=== PATIENT | female | born 1975 | race African-American/Black ===

== ENCOUNTER 2017-11-12 06:20 | Emergency (ER) | payer MEDICAID, SELFPAY ==
[2017-11-12] MEDS ORDERED: Ibuprofen 800 MG TAB ONE (07:16)
[2017-11-12] MEDS ORDERED: traMADol HCl 50 MG TAB ONE (07:18)
== END 2017-11-12 07:24 | disposition home or self-care (01) ==
LOC: ERS 06:20
DX: J06.9 Acute upper respiratory infection, unspecified (principal); G89.29 Other chronic pain; M79.602 Pain in left arm; F17.210 Nicotine dependence, cigarettes, uncomplicated
CPT/HCPCS: 99406

== ENCOUNTER 2018-02-20 06:47 | Emergency (ER) | payer SELFPAY ==
[2018-02-20 07:39] LABS: ALT (SGPT) 20 U/L (8-55); AST (SGOT) 26 U/L (5-34); Albumin 4.4 g/dL (3.5-5.0); Alkaline Phosphatase 59 U/L (40-150); Anion Gap 12 mmol/L (10-20); BUN (Urea Nitrogen) 6 mg/dL (7.0-18.7); Bilirubin, Total 0.5 mg/dL (0.2-1.2); Calc. Creatinine Clearance 0 mL/min (70-130); Calcium 9.6 mg/dL (7.8-10.44); Carbon Dioxide 24 mmol/L (22-29); Chloride 103 mmol/L (98-107); Estimated GFR-MDRD Greater than 90; Globulin 3.5 g/dL (2.4-3.5); Glucose 84 mg/dL (70-105); Lipase 15 U/L (8-78); Magnesium 2.4 mg/dL (1.6-2.6); Potassium 4.1 mmol/L (3.5-5.1); Protein, Total 7.9 g/dL (6.0-8.3); Sodium 135 mmol/L (136-145)
[2018-02-20] MEDS ORDERED: Ondansetron HCl/PF 4 MG/2 ML Vial ONE (07:46)
[2018-02-20 07:58] LABS: #Basophils 0.1 thou/uL (0.0-0.2); #Eosinphils 0.4 thou/uL (0.0-0.7); #Lymphocytes 3.3 thou/uL (1.20-3.40); #Monocytes 0.8 thou/uL (0.11-0.59); #Neutrophils 6.2 thou/uL (1.40-6.50); %Eosinophils 3.7 % (0.0-10.0); %Lymphocytes 30.4 % (21.0-51.0); %Monocytes 7.6 % (0.0-10.0); %Neutrophils 57.3 % (42.0-75.0); Anisocytosis SLIGHT = 6-15 cells (100X) (0-5/hpf); Hemoglobin 9.8 g/dL (12.0-16.0); MDiff Complete? YES; Mean Corpuscular HGB CONC 31.4 g/dL (32.0-36.0); Mean Corpuscular Hemoglobin 21.4 pg (27.0-31.0); Mean Corpuscular Volume 68.3 fl (81.0-99.0); Mean Platelet Volume 8.5 fL (7.4-10.4); Microcytosis SLIGHT = 6-15 cells (100X) (0-5/hpf); PLT Morphology Comment Appears Increased; Platelet Count 405 thou/uL (130-400); Polychromasia SLIGHT = 2-3 cells (100X) (0-2/hpf); RBC Distribution Width 17.6 % (11.5-14.5); Red Blood Cell (RBC) Count 4.59 mill/uL (4.20-5.40); White Blood Cell (WBC) Count 10.8 thou/uL (4.8-10.8)
[2018-02-20 08:40] LABS: Bilirubin Negative (Negative); Blood, Urine Negative (Negative); Clarity CLEAR (Clear); Glucose, Urine (Dipstick) Negative (Negative); Leukocyte Negative (Negative); Nitrite Negative (Negative); Protein, Urine (Dipstick) Negative (Neg-Trace); Specific Gravity, Urine 1.011 (1.002-1.036); Urobilinogen 0.2 mg/dL (0.2-1.0); pH, Urine 7.5 (5.0-9.0)
== END 2018-02-20 09:12 | disposition home or self-care (01) ==
LOC: ERS 06:47
DX: R11.2 Nausea with vomiting, unspecified (principal); R19.7 Diarrhea, unspecified; F17.210 Nicotine dependence, cigarettes, uncomplicated
CPT/HCPCS: 80053; 81003; 83690; 83735; 85025; 96361; 96372; 96374; J2405

== ENCOUNTER 2018-06-28 23:31 | Emergency (ER) | payer SELFPAY ==
[2018-06-29] MEDS ORDERED: Ketorolac Tromethamine 30 MG/ML VIAL ONE (00:26)
== END 2018-06-29 00:55 | disposition home or self-care (01) ==
LOC: ERS 23:31
DX: K02.9 Dental caries, unspecified (principal); F17.210 Nicotine dependence, cigarettes, uncomplicated; Z71.6 Tobacco abuse counseling; Z79.899 Other long term (current) drug therapy
CPT/HCPCS: 96372; 99406; J1885

== ENCOUNTER 2019-03-22 17:04 | Inpatient (IN) | payer SELFPAY ==
--- NOTE | 2019-03-22 18:41 | PDOC.FPRHP ---
- History of Present Illness Chief Complaint: Symptomatic anemia History of Present Illness: 43 yo F with PMH GERD is directly admitted for symptomatic anemia. Hgb was 7.8. Patient reports one month of fatigue, tired, lightheaded upon standing, dyspnea on exertion at work. Also has new onset difficulty swallowing that began ~ 4 days ago. Progressive dysphagia to liquids and now solids. Sensation of food getting stuck. No vomiting, regurgitation. Reports significant acid reflux, has been out of PPI x1 month. Denies melena. Reports some intermittent mild chest pain/ache. No current pain. Periods are regular, last 7 days, uses 2 pads/day typically. In October/ November had heavier periods but now back to normal. Denies clots passing. - Allergies/Adverse Reactions Allergies Allergy/AdvReac Type Severity Reaction Status Date / Time amoxicillin Allergy Verified 03/22/19 19:57 - History PMHx: GERD, H pylori s/p treatment 2 yrs ago. L elbow dislocation PSHx: None FHx: Mom-HTN, aunts with lung and stomach cancer. Father - [place] in 60s Social: Smoke 1/2 PPD x 10 yrs. Drinks 3-4 12 oz drinks. Marijuana use. - Review of Systems General: reports: fatigue. denies: fever/chills ENT: denies: nasal congestion Respiratory: reports: shortness of breath, exercise intolerance. denies: cough Cardiovascular: reports: chest pain. denies: palpitation Gastrointestinal: reports: constipation. denies: nausea, vomiting, diarrhea, abdominal pain, GI bleeding Genitourinary: denies: dysuria Skin: denies: rashes Musculoskeletal: denies: pain, tenderness Neurological: reports: weakness - Vital signs BP: 108/61 HR: 85 RR: 16 Tmax: 98.2 Pox: 99% on RA Wt: 65 kg - Physical Exam Constitutional: NAD, awake, alert and oriented HEENT: normocephalic and atraumatic, PERRLA, EOMI, conjunctiva clear, MMM, oropharynx clear, other (poor dentition, no pallor) Neck: supple, trachea midline Chest: no-tender to palpation Heart: RRR, normal S1/S2, no murmurs/rubs/gallops, pulses present, no edema Lungs: CTAB, no respiratory distress, no wheezing Abdomen: soft, non-tender, bowel sounds present, no masses/distention Musculoskeletal: normal structure, normal tone Neurological: no focal deficit Skin: no rash/lesions, good turgor, capillary refill <2 seconds Heme/Lymphatic: no unusual bruising or bleeding Psychiatric: normal mood and affect FMR H&P: Results - Labs Result Diagrams: 03/22/19 18:11 FMR H&P: A/P - Problem List (1) Symptomatic anemia Current Visit: Yes Status: Acute Code(s): D64.9 - ANEMIA, UNSPECIFIED (2) Dysphagia Current Visit: Yes Status: Acute Code(s): R13.10 - DYSPHAGIA, UNSPECIFIED (3) GERD (gastroesophageal reflux disease) Current Visit: Yes Status: Chronic Code(s): K21.9 - GASTRO-ESOPHAGEAL REFLUX DISEASE WITHOUT ESOPHAGITIS (4) Atypical chest pain Current Visit: Yes Status: Acute Code(s): R07.89 - OTHER CHEST PAIN (5) Tobacco abuse Current Visit: Yes Status: Chronic Code(s): Z72.0 - TOBACCO USE (6) Alcohol abuse Current Visit: Yes Status: Chronic Code(s): F10.10 - ALCOHOL ABUSE, UNCOMPLICATED - Plan Symptomatic anemia - Hvb 7.8 in clinic - 1 u PRBC ordered, will recheck CBC in am - Vaginal bleeding vs GI loss in ddx. No abnormal or recent heavy periods. - VSS - FOBT pending New onset dysphagia - will consult GI in am GERD - Hx H pylori s/p tx. Last EGD in 2013 with esophagitis and antral gastritis - IV protonix since NPO - ran out of home PPI Atypical chest pain - no current pain. Will get EKG and trop Tobacco abuse - nicotine patch, encourage cessation Alcohol abuse - No history of withdrawal and patient has not drank for a couple days Marijuana abuse PCP: Lynne HICKS Ppx: SCD Diet: NPO at midnight Dispo: admit to medical inpatient Case discussed with Dr. Betts FMR H&P: Upper Level - Pertinent history 43 yo AAF with PMHx gastritis and H. pylori who presents with 1 month of worsening fatigue and more recently, 4-5 days of shortness of breath with exertion. She reports that a few months ago she was having bad heartburn and at that time had a couple of episodes of blood-streaked sputum, none since that time. She denies any h/o melena or BRBPR. Denies family history of colon cancer or change in stool habits. She intermittently has constipation which she relives with eating some dairy. She works at a warehouse and notes over the last few days she has been getting very winded when pushing carts around. She also reports some dysphagia with liquids and solids which has been intolerable the last few days. She endorses 8 lb weight loss but cannot say over how long. - Pertinent findings VSS Gen: awake, alert, oriented HEENT: NCAT, slightly pale conjunctiva, muddy sclera, MMM CV: RRR, no murmur noted RESP: CTAB, no wheezing ABD: soft, NTND, bowel sounds present EXT: cap refill 3 seconds RECTAL: pending - Plan Date/Time: 03/22/19 1841 43 yo AAF here with symptomatic anemia and new progressive dysphagia 1. Symptomatic anemia - Will transfuse 1u PRBC, discussed r/b/a with patient - Repeat H&H in a.m. - Suspect heavy menstural bleeding as primary reason however new finding of dysphagia warrants GI w/u as well - FOBT ordered 2. Dysphagia - Progressive and now solids and liquids - Will consult GI in the a.m. for consideration of upper/possibly lower scope 3. Tobacco abuse - Encourage cessation 4. Alcohol abuse - 4 drinks/day - Encourage cessation - Has not drank in 3 days, out of likely window for withdrawal/DTs - Denies h/o of w/d 5. GERD - Protonix - H/o h. pylori - GI consult as above 6. Atypical chest pain - No current pain - Suspect relate to anemia - Will order EKG and trop I, Velia Acharya MD, PGY-3, have evaluated this patient and agree with findings/ plan as outlined by corporate development intern resident. Pertinent changes/additions are listed here.
[2019-03-22 19:32] VITALS: BMI 23.2
[2019-03-22] MEDS ORDERED: Ondansetron ODT 4 MG TAB PO PRN (19:35)
[2019-03-22 19:39] LABS: #Basophils 0.1 thou/uL (0.0-0.2); #Eosinphils 0.3 thou/uL (0.0-0.7); #Lymphocytes 2.6 thou/uL (1.20-3.40); #Monocytes 0.6 thou/uL (0.11-0.59); %Basophils 1.1 % (0.0-1.0); %Eosinophils 3.8 % (0.0-10.0); %Lymphocytes 34.4 % (21.0-51.0); %Monocytes 8.4 % (0.0-10.0); %Neutrophils 52.3 % (42.0-75.0); Anisocytosis SLIGHT = 6-15 cells (100X) (0-5/hpf); Elliptocytes SLIGHT = 2-5 cells (100X) (0-1/hpf); Hemoglobin 7.7 g/dL (12.0-16.0); Hypochromia SLIGHT = 6-15 cells (100X) (0-5/hpf); MDiff Complete? YES; Mean Corpuscular HGB CONC 29.6 g/dL (32.0-36.0); Mean Corpuscular Hemoglobin 18.7 pg (27.0-31.0); Mean Corpuscular Volume 63.1 fL (78.0-98.0); Mean Platelet Volume 10.8 fL (7.4-10.4); Microcytosis MODERATE=15-30 cells (100X) (0-5/hpf); Platelet Count 344 thou/uL (130-400); Platelet Morphology Comment Appears Adequate; RBC Distribution Width 17.5 % (11.5-14.5); Red Blood Cell (RBC) Count 4.14 mill/uL (4.20-5.40); White Blood Cell (WBC) Count 7.6 thou/uL (4.8-10.8)
[2019-03-22] MEDS ORDERED: Docusate 100 MG CAP PO PRN (19:43)
[2019-03-22] MEDS ORDERED: Pantoprazole 40 MG VIAL IVP SCH (19:45)
[2019-03-22] MEDS: Nicotine 14 MG PATCH TD SCH (20:44)
[2019-03-22] MEDS: Acetaminophen 325 MG TAB PO PRN (21:08)
[2019-03-23] MEDS: Acetaminophen 325 MG TAB PO PRN ×2 (05:37→11:59)
[2019-03-23 05:56] LABS: #Basophils 0.1 thou/uL (0.0-0.2); #Eosinphils 0.4 thou/uL (0.0-0.7); #Lymphocytes 2.3 thou/uL (1.20-3.40); #Monocytes 0.8 thou/uL (0.11-0.59); #Neutrophils 4.3 thou/uL (1.40-6.50); %Basophils 0.7 % (0.0-1.0); %Eosinophils 4.8 % (0.0-10.0); %Lymphocytes 29.3 % (21.0-51.0); %Monocytes 10.2 % (0.0-10.0); Hemoglobin 8.6 g/dL (12.0-16.0); Mean Corpuscular HGB CONC 30.7 g/dL (32.0-36.0); Mean Corpuscular Hemoglobin 20.2 pg (27.0-31.0); Mean Corpuscular Volume 65.8 fL (78.0-98.0); Mean Platelet Volume 10.4 fL (7.4-10.4); Platelet Count 274 thou/uL (130-400); RBC Distribution Width 19.7 % (11.5-14.5); Red Blood Cell (RBC) Count 4.24 mill/uL (4.20-5.40); White Blood Cell (WBC) Count 7.8 thou/uL (4.8-10.8)
--- NOTE | 2019-03-23 06:56 | PDOC.FM ---
- Subjective Subjective: Symptoms have resolved, denies dizziness, lightheadedness, fatigue. She has only been up to the bathroom though. No overnight events. - Objective MAR Reviewed: Yes Vital Signs & Weight: Vital Signs (12 hours) Temp Pulse Pulse Resp BP BP Pulse Ox 03/23/19 04:00 98.1 F 73 16 101/63 99 03/23/19 00:31 97.8 F 75 18 100/53 L 03/22/19 21:41 97.8 F 73 18 105/70 03/22/19 20:00 98.3 F 81 16 111/67 100 Weight Weight 65.317 kg I&O: 03/21/19 03/22/19 03/23/19 06:59 06:59 06:59 Intake Total 1180 Balance 1180 Result Diagrams: 03/23/19 10:17 03/23/19 10:17 Phys Exam - Physical Examination Constitutional: NAD HEENT: moist MMs Neck: supple Respiratory: no wheezing, clear to auscultation bilateral Cardiovascular: RRR systolic murmur Gastrointestinal: soft, non-tender, positive bowel sounds Musculoskeletal: no edema Neurological: moves all 4 limbs Psychiatric: normal affect, A&O x 3 Skin: no rash Dx/Plan (1) Dysphagia Code(s): R13.10 - DYSPHAGIA, UNSPECIFIED Status: Acute (2) Symptomatic anemia Code(s): D64.9 - ANEMIA, UNSPECIFIED Status: Acute (3) Alcohol abuse Code(s): F10.10 - ALCOHOL ABUSE, UNCOMPLICATED Status: Chronic (4) GERD (gastroesophageal reflux disease) Code(s): K21.9 - GASTRO-ESOPHAGEAL REFLUX DISEASE WITHOUT ESOPHAGITIS Status: Chronic (5) Tobacco abuse Code(s): Z72.0 - TOBACCO USE Status: Chronic - Plan Plan: Ms Villela is a 43yo female with pmh GERD, tobacco and alcohol abuse admitted for symptomatic anemia Symptomatic anemia - Hgb 7.7-> 8.6 s/p 1U pRBCs. VSS - Ddx: Vaginal bleeding vs GI loss. No evidence of AUB in hx - FOBT pending Progressive dysphagia - Now solids and liquids - Consulted GI GERD - Hx H pylori s/p tx. - Last EGD in 2013 with esophagitis and antral gastritis - IV protonix as pt currently NPO - GI consulted Atypical chest pain - EKG no ST segment changes. Trop neg Tobacco abuse - Nicotine patch PRN - Encourage cessation Alcohol abuse - 4 drinks per day - No history of withdrawal and patient has not drank for a 3-4 days Marijuana abuse Code Status: FULL DVT ppx: SCDs PCP: Lynne HICKS Addendum - Attending - Attending Attestation Date/Time: 03/23/19 5673 I personally evaluated the patient and discussed the management with Dr. Newberry. I agree with the History, Examination, Assessment and Plan documented above with any addition or exceptions noted below. The patient is s/p 1 unit prbc. Anemia is improved. GI consult is being placed.
[2019-03-23] MEDS ORDERED: Pantoprazole 40 MG VIAL IVP SCH (09:00)
[2019-03-23 11:04] LABS: ALT (SGPT) 12 U/L (8-55); AST (SGOT) 15 U/L (5-34); Albumin 4.1 g/dL (3.5-5.0); Alkaline Phosphatase 58 U/L (40-150); Anion Gap 9 mmol/L (10-20); BUN (Urea Nitrogen) 4 mg/dL (7.0-18.7); Bilirubin, Total 0.4 mg/dL (0.2-1.2); Calc. Creatinine Clearance 114 mL/min (70-130); Calcium 9.5 mg/dL (7.8-10.44); Carbon Dioxide 26 mmol/L (22-29); Chloride 106 mmol/L (98-107); Estimated GFR-MDRD Greater than 90; Globulin 2.8 g/dL (2.4-3.5); Glucose 84 mg/dL (70-105); Iron 20 ug/dL (50-170); Iron Binding Capacity, Total 465 mcg/dL (265-497); Potassium 4.1 mmol/L (3.5-5.1); Protein, Total 6.9 g/dL (6.0-8.3); Sodium 137 mmol/L (136-145)
[2019-03-23 11:39] LABS: Anisocytosis SLIGHT = 6-15 cells (100X) (0-5/hpf); Elliptocytes SLIGHT = 2-5 cells (100X) (0-1/hpf); Hemoglobin 8.9 g/dL (12.0-16.0); Hypochromia MODERATE=16-30 cells (100X) (0-5/hpf); Large Platelets SLIGHT; Lymphocytes 45 % (21-51); MDiff Complete? YES; Mean Corpuscular HGB CONC 29.9 g/dL (32.0-36.0); Mean Corpuscular Volume 66.9 fL (78.0-98.0); Mean Platelet Volume 10.6 fL (7.4-10.4); Microcytosis SLIGHT = 6-15 cells (100X) (0-5/hpf); Monocytes 2 % (0-10); Neutrophil 53 % (42-75); Platelet Count 243 thou/uL (130-400); Platelet Morphology Comment Appears Adequate; Poikilocytosis SLIGHT = 6-15 cells (100X) (0-5/hpf); RBC Distribution Width 19.7 % (11.5-14.5); Red Blood Cell (RBC) Count 4.44 mill/uL (4.20-5.40); White Blood Cell (WBC) Count 6.9 thou/uL (4.8-10.8)
[2019-03-23] MEDS ORDERED: Sodium Chloride 0.9% (PF) 10 ML VIAL FS PRN (14:55)
[2019-03-23] MEDS ORDERED: GoLYTELY 4,000 ml Bottle PO SCH (18:00)
[2019-03-23] MEDS: Pantoprazole 40 MG VIAL IVP SCH (20:17)
[2019-03-23] MEDS: Nicotine 14 MG PATCH TD SCH (20:17)
--- NOTE | 2019-03-23 21:30 | CON ---
DATE OF CONSULTATION: 03/23/2019 REASON FOR CONSULTATION: Symptomatic anemia, dysphagia. CONSULTING PROVIDER: Dr. Abigail Newberry. HISTORY OF PRESENT ILLNESS: The patient is a 43-year-old female with past medical history of GERD and H. pylori, status post treatment 2 years ago, presenting with complaints of dysphagia and shortness of breath. Upon questioning the patient, she stated that in December of this year, she had the acute onset of hematemesis characterized as coffee-grounds emesis x4, for which she was seen [facility] an [facility]. EGD was planned for diagnostic purposes, but the procedure was never performed due to insurance issues. She was subsequently placed on PPI as part of management for this condition and she did not have any further episodes of hematemesis since then. However, approximately 4 to 5 days ago, she had the acute onset of dysphagia characterized as the sensation that both solid and liquid foods had difficulty passing between the levels of the sternal notch to the xiphoid process, but ultimately the sensation that things were getting stuck at the xiphoid process itself. She adds that she has never experienced this before , but that she had run out of her acid suppression medications approximately 1 month ago. This was associated with increased chest pain, shortness of breath both at rest and exertion as well as odynophagia characterized as an itching-type sensation that is present throughout her entire substernal area. She denies any other symptoms including any changes in her bowel habits, having approximately one semi-solid bowel movement every 2 days with increased abdominal pressure in order to facilitate defecation. Currently, she denies any nausea, vomiting, fevers, chills, GI bleeding. Of note, the patient does have a brother who was diagnosed with achalasia and has had to undergo subsequent therapy as a result. REVIEW OF SYSTEMS: A 10-category review of systems was obtained with all responses negative except for the pertinent positives as listed in HPI. PAST MEDICAL HISTORY: As per HPI. PAST SURGICAL HISTORY: None. FAMILY HISTORY: One of her aunts was diagnosed with stomach cancer (unknown age ), but otherwise denies any family history of colon polyps or colon cancer. SOCIAL HISTORY: Smokes approximately one-half pack per day, but also does engage in frequent marijuana use. She also drinks around three to four 12-ounce alcoholic beverages per day as well. OUTPATIENT MEDICATIONS: None. ALLERGIES: AMOXICILLIN. PHYSICAL EXAMINATION: VITAL SIGNS: Temperature 98, pulse 60, blood pressure 107/68, respiratory rate 18, saturating 99% on room air. GENERAL: The patient was lying in bed, in no acute distress. Alert and oriented x4. HEENT: Normocephalic, atraumatic. NECK: Supple. No JVD or scleral icterus noted. CARDIOVASCULAR: Regular rate and rhythm with no discernible murmurs, gallops, or rubs. RESPIRATORY: Clear to auscultation bilaterally with no discernible wheezes or rales. ABDOMEN: Normoactive bowel sounds. Soft, nondistended. Mild tenderness to palpation in the midepigastric region. EXTREMITIES: No cyanosis, clubbing, or edema. LABORATORY DATA: CBC with white blood cell count of 7.8, hemoglobin 8.6, hematocrit 27.9, platelets 274. Chemistry with a sodium of 137, potassium 4.1, chloride 106, CO2 of 26, BUN 4, creatinine 0.66, glucose 84, AST 15, ALT 12, alkaline phosphatase 58, total bilirubin 0.4. Iron indices were drawn earlier today, but were drawn after infusion of blood, so the results are skewed and will not reflect a true level for this particular patient. IMAGING DATA: No current GI imaging is available for review. ASSESSMENT AND PLAN: The patient is a 43-year-old female with past medical history of gastroesophageal reflux disease and Helicobacter pylori, status post treatment (two years ago), presenting with symptomatic anemia and dysphagia. Symptomatic anemia: Upon chart review, the patient has had a significant microcytic anemia since 2014, but had not been diagnosed with any particular etiology for her anemia during this time. However, more recently, she has had a mild drop in her H and H when compared to baseline, which has manifested itself as increased shortness of breath both at rest and exertion. She does report a recent history of hematemesis in December 2018, which could potentially contribute to her current anemia, however, she has not had any further episodes of hematemesis since then raising the concern for a chronic slow GI bleed. She has not had a colonoscopy before nor did she endorse any family history of colon cancer, which places her at average risk for colonic malignancy. However, given her ethnicity, she has an increased risk for colonic neoplasm and would benefit from a colonoscopy. RECOMMENDATIONS: 1. Would continue to trend H and H and transfuse as necessary to maintain an H and H of 7/21. 2. Continue to monitor clinically for signs of active GI bleeding. 3. Would place the patient on pantoprazole 40 mg b.i.d. in light of hematemesis in December 2018. 4. We will plan for both EGD and colonoscopy tomorrow for further evaluation of her symptomatic anemia. Dysphagia: The patient is presenting with fairly acute onset of dysphagia approximately 4 to 5 days ago, characterized by the sensation that both solid and liquid foods are having difficulty traversing the esophagus starting at the sternal notch to the xiphoid process, but ultimately getting the sensation that things are getting stuck at the xiphoid process itself. She does have a fairly decent history for gastroesophageal reflux disease, which could potentially contribute to her current clinical situation, especially given the acute onset of her symptoms. However, the differential could also include esophageal stricture/stenosis (less likely given acute onset), Zayda esophagitis, eosinophilic esophagitis, oropharyngeal dysphagia (less likely), CMV or HSV infection, extrinsic compression of the esophagus, and/or GI neoplasm. RECOMMENDATIONS: 1. Would place the patient on a clear-liquid diet with patient n.p.o. at midnight in anticipation for EGD tomorrow morning. 2. Would place the patient on pantoprazole 40 mg b.i.d. given the higher likelihood of acid reflux contributing to her current symptoms. 3. Would continue standard anti-reflux precautions including maintaining more of an upright posture, especially after meals and avoiding later meals and avoiding trigger foods. 4. We will continue to follow. Please call with any questions. Job ID: [id number] [facility] HEALTH SYSTEMJaycob
--- NOTE | 2019-03-24 06:35 | PDOC.FM ---
- Subjective Subjective: No overnight events. Completed prep. Has been having yellow-clear stools. Reports headache and some nausea this AM. Denies dizziness, lightheadedness, fatigue. - Objective MAR Reviewed: Yes Vital Signs & Weight: Vital Signs (12 hours) Temp Pulse Resp BP Pulse Ox 03/23/19 20:00 98.4 F 64 16 109/70 98 Weight Admit Weight 65.317 kg Weight 65.317 kg I&O: 03/22/19 03/23/19 03/24/19 06:59 06:59 06:59 Intake Total 1180 4000 Balance 1180 4000 Result Diagrams: 03/24/19 06:17 03/24/19 06:17 Phys Exam - Physical Examination Constitutional: NAD HEENT: moist MMs Neck: supple Respiratory: no wheezing, clear to auscultation bilateral Cardiovascular: RRR Gastrointestinal: soft, non-tender, positive bowel sounds Musculoskeletal: no edema Neurological: moves all 4 limbs Psychiatric: normal affect, A&O x 3 Skin: no rash Dx/Plan (1) Dysphagia Code(s): R13.10 - DYSPHAGIA, UNSPECIFIED Status: Acute (2) Symptomatic anemia Code(s): D64.9 - ANEMIA, UNSPECIFIED Status: Acute (3) Alcohol abuse Code(s): F10.10 - ALCOHOL ABUSE, UNCOMPLICATED Status: Chronic (4) GERD (gastroesophageal reflux disease) Code(s): K21.9 - GASTRO-ESOPHAGEAL REFLUX DISEASE WITHOUT ESOPHAGITIS Status: Chronic (5) Tobacco abuse Code(s): Z72.0 - TOBACCO USE Status: Chronic - Plan Plan: Ms Villela is a 43yo female with pmh GERD, tobacco and alcohol abuse admitted for symptomatic anemia Symptomatic anemia - Hgb 7.7-> 8.6 s/p 1U pRBCs. VSS - Ddx: Vaginal bleeding vs GI loss. No evidence of AUB in hx - FOBT negative - GI consulted, apprec recs - NPO for EGD/colonoscopy today Progressive dysphagia - Now solids and liquids - Consulted GI, EGD today GERD - Hx H pylori s/p tx. - Last EGD in 2013: esophagitis and antral gastritis - IV protonix BID as pt currently NPO Atypical chest pain - EKG no ST segment changes. Trop neg Tobacco abuse - Nicotine patch PRN - Encourage cessation Alcohol abuse - 4 drinks per day - No history of withdrawal Marijuana abuse Code Status: FULL DVT ppx: SCDs PCP: Lynne HICKS [place] - Attending - Attending Attestation Date/Time: 03/24/19 9094 I personally evaluated the patient and discussed the management with Dr. Newberry. I agree with the History, Examination, Assessment and Plan documented above with any addition or exceptions noted below. The patient had egd and colonoscopy this morning. Will give iron infusion due to iron deficiency. Hb is stable. Will likely d/c this afternoon.
[2019-03-24 06:58] LABS: #Basophils 0.1 thou/uL (0.0-0.2); #Eosinphils 0.5 thou/uL (0.0-0.7); #Lymphocytes 2.5 thou/uL (1.20-3.40); #Monocytes 0.7 thou/uL (0.11-0.59); #Neutrophils 3.8 thou/uL (1.40-6.50); %Basophils 0.7 % (0.0-1.0); %Eosinophils 6.1 % (0.0-10.0); %Lymphocytes 33.2 % (21.0-51.0); %Monocytes 9.6 % (0.0-10.0); %Neutrophils 50.3 % (42.0-75.0); Hemoglobin 9.2 g/dL (12.0-16.0); Mean Corpuscular HGB CONC 31.2 g/dL (32.0-36.0); Mean Corpuscular Hemoglobin 20.6 pg (27.0-31.0); Platelet Count 298 thou/uL (130-400); RBC Distribution Width 19.9 % (11.5-14.5); Red Blood Cell (RBC) Count 4.46 mill/uL (4.20-5.40); White Blood Cell (WBC) Count 7.5 thou/uL (4.8-10.8)
[2019-03-24 07:17] LABS: Anion Gap 9 mmol/L (10-20); BUN (Urea Nitrogen) 4 mg/dL (7.0-18.7); Calc. Creatinine Clearance 111 mL/min (70-130); Calcium 9.7 mg/dL (7.8-10.44); Carbon Dioxide 25 mmol/L (22-29); Chloride 107 mmol/L (98-107); Estimated GFR-MDRD Greater than 90; Glucose 86 mg/dL (70-105); Sodium 137 mmol/L (136-145)
[2019-03-24] MEDS: Acetaminophen 325 MG TAB PO PRN (08:18)
[2019-03-24] MEDS: Pantoprazole 40 MG VIAL IVP SCH (08:19)
[2019-03-24 09:28] LABS: BHCG - Serum Negative (NEGATIVE); Pregs Control Background? CLEAR/WHITE (CLR/WHITE); Pregs Control Bar Appear? YES (CONTROL BAR)
[2019-03-24] MEDS ORDERED: Iron, Sodium Ferric Gluconate 250 MG in Sodium Chloride 0.9% 100 ML IVPB SCH (11:15)
--- NOTE | 2019-03-24 11:22 | OP ---
DATE OF PROCEDURE: 03/24/2019 PROCEDURE PERFORMED: Esophagogastroduodenoscopy with biopsy, colonoscopy (diagnostic). INDICATION FOR PROCEDURE: Anemia of unknown origin. DESCRIPTION OF PROCEDURE: After the risks and benefits of the procedures were explained to the patient including risks of bleeding, infection, perforation, reactions to anesthesia, aspiration and/or pain, informed consent was obtained. The patient was then taken to the endoscopy suite, where deep sedation was administered via propofol and the anesthesia support. Once adequate sedation was achieved, the standard gastroscope was introduced into the mouth with intubation of the esophagus, stomach, and the proximal small intestines with the findings listed below. Upon completion of this portion of the procedure, all equipment was removed from the patient and the bed was rotated 180 degrees in anticipation for the colonoscopy. After a digital rectal examination was performed, the standard colonoscope was introduced into the rectum and advanced to the terminal ileum with mild difficulty due to a tortuous sigmoid colon. The quality of the prep was excellent with good visualization achieved. The patient tolerated the procedure well with no immediate perioperative complications. Upon conclusion of the colonoscopy, all equipment was removed from the patient and the patient was transferred to PACU in satisfactory condition. EGD FINDINGS: Esophagus: Normal-appearing mucosa was seen in the proximal, mid, and distal esophagus. Both the diaphragmatic pinch and GE junction were well seen at approximately 40 cm past the incisors. There was no evidence of erosions, ulcerations, mass, lesions, or active/recent bleeding. Stomach: Normal-appearing mucosa was seen in the gastric cardia, fundus, body, greater curvature, antrum, and incisura. There was no evidence of erosions, ulcerations, mass, lesions, or active/recent bleeding. Duodenum normal-appearing mucosa was seen in both the duodenal bulb and second portion of the duodenum. There was no evidence of erosions, ulcerations, mass, lesions, or active/recent bleeding. Random biopsies were taken from both the bulb and the second portion for evaluation of possible celiac disease. IMPRESSION: 1. Normal upper endoscopy. 2. No etiology for the patient's anemia was seen during this examination. COLONOSCOPY FINDINGS: Digital rectal exam, normal-appearing skin and sphincter tone was seen on external examination. COLON FINDINGS: Normal-appearing mucosa was seen within the terminal ileum as well as at the ileocecal valve and appendiceal orifice. Normal-appearing mucosa was then also seen in the cecum, ascending, transverse, descending, sigmoid colons and rectum. Small internal hemorrhoids were seen on rectal retroflexion. There was no evidence of erosions, ulcerations, mass, lesions, or active/recent bleeding seen throughout the entire colon. IMPRESSION: 1. Small internal hemorrhoids. 2. Otherwise normal colonoscopy with no etiology of the patient's anemia seen during this examination. RECOMMENDATIONS: 1. We will continue to trend H and H and transfuse as necessary to maintain an H and H of 7/21 while inpatient. 2. Continue to monitor clinically for signs of active GI bleeding. 3. Agree with administration of iron supplementation. 4. We will follow up on the biopsy results for possible celiac disease. 5. I would have the patient follow up in the GI Clinic in the next 4 weeks for re-evaluation of anemia and possible capsule endoscopy at that time. We will sign off at this time. Please call with any additional questions. Job ID: [id number]
[2019-03-24 12:26] VITALS: BP 104/65; TEMP 97.7
[2019-03-24] MEDS ORDERED: PROPOFOL 200 MG/20 ML VIAL ONE (15:58)
--- NOTE | 2019-03-25 00:45 | DIS ---
DATE OF ADMISSION: 03/22/2019 DATE OF DISCHARGE: 03/24/2019 RESIDENT: Abigail Newberry MD ADMITTING ATTENDING: Cisco Betts MD DISCHARGE ATTENDING: Michelle Horowitz MD CONSULTS: GI, Dr. Judge. PROCEDURES: EGD, colonoscopy, normal upper endoscopy. No etiology for patient's anemia found. Colonoscopy results: Small internal hemorrhoids otherwise normal colonoscopy with no etiology of the patient's anemia seen during this exam. PRIMARY DIAGNOSIS: Symptomatic anemia. SECONDARY DIAGNOSES: 1. Progressive dysphagia. 2. Gastroesophageal reflux disease. 3. Atypical chest pain. 4. Tobacco abuse. 5. Alcohol abuse. 6. Marijuana abuse. DISCHARGE MEDICATIONS: 1. Ferrous sulfate 325 mg q.a.m. with meals. 2. . 3. Protonix 40 mg b.i.d. HISTORY OF PRESENT ILLNESS/HOSPITAL COURSE: Ms. Villela is a 43-year-old female with past medical history of GERD, directly admitted from [facility] for symptomatic anemia with a hemoglobin of 7.8. The patient reported one month of fatigue, lightheadedness, and dyspnea on exertion. She also reported progressive dysphagia with new onset of difficulty swallowing liquids about 4 days ago. She has had significant acid reflux, but she has been out of her omeprazole for the past month. Denied any melena or bright red blood per rectum. Reports that her periods have been regular. They last 7 days and she typically uses 2-3 packs per day, was very concerned whenever she uses the restroom, she notes that her pads have no saturation on them but does pass some clots when she uses the restroom. She was treated for H pylori two years ago and had EGD in 2019 with esophagitis and antral gastritis. On admission, her vital signs were within normal limits. The patient's blood pressure 108/61, heart rate 85. She had a systolic flow murmur on exam in regard to her symptomatic anemia. Initial hemoglobin was 7.7, 9.2 after 1 unit of packed red blood cells. She had a negative FOBT. She was started on daily ferrous sulfate, as well as b.i.d. PPI. GI was consulted, who performed EGD for patient's progressive dysphagia as well as colonoscopy for symptomatic anemia. Both were negative with exception of hemorrhoids. The patient's atypical chest pain, EKG and troponin were normal. The patient has a history of tobacco, alcohol, and marijuana abuse. No signs of withdrawal during hospitalization. Iron studies were obtained. TIBC 465, ferritin 8, iron 20. She received an iron infusion prior to discharge. DISPOSITION: Stable. DISCHARGE INSTRUCTIONS: 1. Location: Home. 2. Diet: Regular. Avoid acidic foods. 3. Activity: No restrictions. 4. Followup: Follow up with [facility], Dr. Hamilton, within 7 days. Job ID: [id number]
[2019-03-25] MEDS ORDERED: Ferrous Sulfate 325 MG TAB PO SCH (08:00)
== END 2019-03-24 15:53 | disposition home or self-care (01) | DRG 812 ==
LOC: T4-B 17:27
PROVIDERS: ADMIT Family Medicine; ATTEND Family Medicine
PROC: 0DB98ZX Excision of Duodenum, Via Natural or Artificial Opening Endoscopic, Diagnostic (ICD-10-PCS; principal; 2019-03-22)
PROC: 0DJD8ZZ Inspection of Lower Intestinal Tract, Via Natural or Artificial Opening Endoscopic (ICD-10-PCS; 2019-03-22)
DX: D50.9 Iron deficiency anemia, unspecified (principal); K21.9 Gastro-esophageal reflux disease without esophagitis; R13.10 Dysphagia, unspecified; F12.10 Cannabis abuse, uncomplicated; F10.10 Alcohol abuse, uncomplicated; F17.210 Nicotine dependence, cigarettes, uncomplicated; R07.89 Other chest pain; K64.8 Other hemorrhoids
CPT/HCPCS: 36415; 36430; 80048; 80053; 82274; 82728; 83540; 83550; 84484; 84703; 85025; 85046; 85060; 86850; 86900; 86901; 88305; 88312; 88313; 93005; 93010; C9113; J2916; J3490; P9016

== ENCOUNTER 2019-04-21 06:55 | Outpatient (CLI) | payer MEDICAID ==
--- NOTE | 2019-04-21 08:00 | ULT ---
US Pelvic W Doppler HISTORY: Menorrhagia COMPARISON: None TECHNIQUE: Multiple grayscale and color Doppler images were obtained in a transabdominal pelvic ultra sound. Spectral analysis of the Doppler waveforms of the ovaries were performed. FINDINGS: CERVIX: Not well visualized UTERUS: Enlarged uterus with heterogeneous echotexture and multiple foci of altered echotexture indic ative of fibroid uterus. Largest discernible uterine fibroid is just under 4 cm in diameter ENDOMETRIAL STRIPE: 16, (19 mm. No free fluid is present. RIGHT OVARY: Normal flow, without focal mass. LEFT OVARY: Normal flow, without focal mass. IMPRESSION: 1. Fibroid uterus. 2. Thickened endometrium. Recommend appropriate clinical follow-up.
== END 2019-04-21 06:56 | disposition home or self-care (01) ==
LOC: BICULT 06:55
PROVIDERS: ATTEND Family Medicine
DX: N93.9 Abnormal uterine and vaginal bleeding, unspecified (principal); D25.9 Leiomyoma of uterus, unspecified; R93.89 Abnormal findings on diagnostic imaging of other specified body structures
CPT/HCPCS: 76856; 93976

== ENCOUNTER 2019-07-25 13:10 | Observation (INO) | payer MEDICAID ==
--- NOTE | 2019-07-25 14:11 | PDOC.FPRHP ---
- History of Present Illness Chief Complaint: Symptomatic Anemia, AUB History of Present Illness: Pt is a 43 yo with PMH significant for uterine fibroids, AUB who is coming in for symptomatic anemia directly admitted by Dr. Mitchell. Pt had AUB starting the end of 2017 resulting in work up revealing the uterine fibroids, endometrial biopsy was negative. Pt's symptoms progressed so mirena was placed June 13, 2019 with initial decrease in bleeding. Last week her bleeding progressed requiring her to replace pads q1-2 hrs. Pt states she had orthostatic hypotension, dyspnea on exertion, lightheadedness as well. Subsequently, she visited Dr. Mitchell 07/20 and started TXA 07/21 with alleviation in bleeding. She is currently not bleeding but remains symptomatic secondary to anemia, Hgb 7.[address] Mitchell's office. Of note, pt had an EGD/Colonoscopy in March 2019 for bleeding which was non- revealing, she required one unit of blood at this time. - Allergies/Adverse Reactions Allergies Allergy/AdvReac Type Severity Reaction Status Date / Time amoxicillin Allergy Verified 07/25/19 14:07 - Home Medications Medication Instructions Recorded Confirmed Type Ferrous Sulfate [Feosol] 325 mg PO QAM-WM #30 tab 03/24/19 07/25/19 Rx Tranexamic Acid [Lysteda] 2 tab PO TID 07/25/19 07/25/19 History - History PMHx: GERD, history of Fibroids PSHx: none FHx: mother - possible endometriosis Social: heavy drinker, 2 large smirnoffs/day; - Review of Systems General: denies: fever/chills, weight/appetite/sleep changes Eyes: reports: vision changes ENT: denies: nasal congestion, rhinorrhea Respiratory: reports: shortness of breath, exercise intolerance. denies: cough , congestion Cardiovascular: denies: chest pain, palpitation, edema Gastrointestinal: denies: nausea, vomiting, diarrhea, constipation Skin: denies: rashes, lesions Musculoskeletal: denies: pain, tenderness Neurological: reports: syncope, weakness. denies: numbness, seizure - Vital signs BP: [109/55] HR: [73] RR: [20] Tmax: [98.8] Pox: []% on [RA] Wt: [68 Kg] - Physical Exam Constitutional: NAD, awake, alert and oriented HEENT: PERRLA, EOMI, conjunctiva clear Neck: supple, FROM, trachea midline Heart: RRR, normal S1/S2 Lungs: CTAB, no respiratory distress, good air movement Abdomen: soft, bowel sounds present, no masses/distention Musculoskeletal: normal structure, ROM grossly normal Neurological: no focal deficit, CN II-XII intact Skin: no rash/lesions Heme/Lymphatic: no purpura, no petechia Psychiatric: good judgment and insight, intact recent and remote memory FMR H&P: A/P - Problem List (1) Abnormal uterine bleeding (AUB) Current Visit: Yes Status: Acute Code(s): N93.9 - ABNORMAL UTERINE AND VAGINAL BLEEDING, UNSPECIFIED (2) Uterine fibroid Current Visit: Yes Status: Acute Code(s): D25.9 - LEIOMYOMA OF UTERUS, UNSPECIFIED (3) Symptomatic anemia Current Visit: No Status: Acute Code(s): D64.9 - ANEMIA, UNSPECIFIED (4) Alcohol abuse Current Visit: No Status: Chronic Code(s): F10.10 - ALCOHOL ABUSE, UNCOMPLICATED (5) GERD (gastroesophageal reflux disease) Current Visit: No Status: Chronic Code(s): K21.9 - GASTRO-ESOPHAGEAL REFLUX DISEASE WITHOUT ESOPHAGITIS (6) Tobacco abuse Current Visit: No Status: Chronic Code(s): Z72.0 - TOBACCO USE - Plan # AUB, Symptomatic Anemia Hx started Oct 2018, Nov 2018. Followed by Dr. Mitchell. TVUS revealed multiple fibroids, largest 4 cm. Mirana placed May 2019 with decrease in bleeding until last week. Heavy bleeding q4days, changed pad q1-2h. Dr. Mitchell placed on TXA on 07/21/19. Pt has no bleeding 07/25 but remains symptomatic, Hgb 7.3. 9.2 in March 2019. Vitals stable. - Type and Cross, pRBC's 2 Units - H/H am - follow symptoms - OBGYN consult - fatou recs # Microcytic Anemia TIBC 465, Ferritin 8, Iron 20 in 03/2019. Iron transfusion 03/2019. - continue ferrous sulfate # GERD - no meds # Nicotine Dependence 1pack/4 days - Nicotine patch # Alcohol Abuse Stopped drinking last week. Was drinking a box of wine previously. - ASE initiated Diet: no restrictions Fluids: PO intake VTE Prophylaxis: SCDs Code Status: Full Dispo: Obs at this time, see if symptoms resolve with pRBCs, follow up OBGYN recs. FMR H&P: Upper Level - Pertinent history 43 yo F w/ menorrhagia 2/2 uterine fibroids presents as direct admission from [facility] 2/2 symptomatic anemia. Pt had aub starting back in Nov that occurred with monthly cycle. She was eventually seen by Dr Mitchell OP and aub workup revealed negative endometrial biopsy and TVUS revealed a fibroid uterus. Mirena was placed in May of 2019 and she reported control of bleeding after that, but it recently returned. She continued to have heavy menstrual bleeding to the amount of 1 pad per hour for 2 days straight then 1 pad every other hour for the remainder of her cycle (approx 5-6 days). Of note, she was hospitalized in March of 2019 for progressive dysphagia and had an EGD/Colon at that time which was negative. She had blood studies which revealed a profound microcytic iron deficiency anemia and was transfused 1UPRBCs and had an iron infusion as well. Due to her not being able to tolerate oral iron she eventually stopped taking the medication and her iron deficiency anemia never resolved. Regarding possible future therapeutic options, pt does not want hysterectomy, although she is not planning on any other children she remains open to the idea. - Pertinent findings ROS: As above, Currently reports no vaginal bleeding PE: GEN: NAD HEENT: NCAT, perrla, EOMI, no overt conjunctival pallor noted CV: RRR No tachycardia, No MRG, pulses full and equal throughout and cap refill normal Resp: CTABL No WRR Abd: Soft NTND Extremities: Moving all Neuro: No focal deficit - Plan Date/Time: 07/25/19 1679 IJasvir DO, have evaluated this patient and agree with findings/ plan as outlined by phd internship resident. Pertinent changes/additions are listed here. 1) Symptomatic anemia 2/2 aub - transfuse 2UPRBCs - repeat am cbc - consult information security risk analyst small package and bundle sorter clerk on for additional recommendations; although, pt reports she does not want surgical intervention and would prefer to give the Mirena IUD "time" 2) AUB: - OP TVUS showed fibroid uterus; likely cause - Endometrial biopsy WNL 3) Microcytic anemia - iron studies confirm iron deficiency anemia with profound microcytosis - will transfuse 2U PRBCs and consider Iron infusion - will need continued iron supplementation and resolution of continued bleeding - if microcytosis persists thalassemia remains a possibilty; consider Hgb electrophoresis after correction of iron deficiency 4) Alcohol abuse - [id number] for withdrawal, consider ase Addendum - Attending - Attending Attestation Date/Time: 07/25/19 1700 I personally evaluated the patient and discussed the management with Dr. Saxena I agree with the History, Examination, Assessment and Plan documented above with any addition or exceptions noted below - 43 yo female with h/o GERD and AUB secondary to fibroids sent from clinic today due to severe anemia with Hgb = 7.4. Patient reports feeling cold, SOB, and occasional dizziness when she stands. She had a MIrena IUD placed in mid May to see if it would help with her heavy menstrual bleeding. Patient reports that it seemed to help until last week when she began to have heavy bleeding again. No clots. Was started on TXA last week but took one dose and had vomiting and was instructed to stop the medication. Her bleeding did stop on Wednesday . Lab work was drawn and returned today with the low HGB.PMH/PSH/Meds/SH reviewed and agree with resident's documentation. Afebrile VSS Exam repeated by me and agree with resident's findings. A/P: 1) Symptomatic microcytic anemia secondary to AUB - will transfuse 2u pRBCs. 2) AUB secondary to fibroids - no bleeding currently. Patient wishes to continue with the MIrena as it was recently placed.
[2019-07-25 14:15] VITALS: BMI 24.2
[2019-07-25] MEDS ORDERED: Nicotine 7 MG PATCH TD SCH (15:00)
[2019-07-25] MEDS ORDERED: Acetaminophen 500 MG TAB PO SCH (18:15)
[2019-07-25] MEDS ORDERED: Sodium Chloride 0.9% 10 ML ONE (18:18)
[2019-07-25] MEDS: Sodium Chloride 0.9% 10 ML ONE (18:20)
[2019-07-26] MEDS ORDERED: Acetaminophen 500 MG TAB PO PRN (00:24)
[2019-07-26] MEDS ORDERED: Sodium Chloride 0.9% 10 ML ONE (03:07)
--- NOTE | 2019-07-26 06:50 | PDOC.FM ---
- Subjective Subjective: Pt is feeling well this morning. She tolerated the transfusion well. Denies bleeding at this time. - Objective Vital Signs & Weight: Vital Signs (12 hours) Temp Pulse Pulse Resp BP BP BP 07/26/19 03:10 98.3 F 68 68 20 107/57 L 107/57 L 07/26/19 00:40 98.3 F 60 20 115/66 07/26/19 00:33 98.3 F 60 20 115/66 07/26/19 00:18 98.5 F 68 20 98/57 L 07/26/19 00:15 98.5 F 68 20 98/57 L 98/57 L 07/25/19 23:45 98.5 F 68 20 98/57 L 07/25/19 21:05 98.4 F 72 72 22 H 103/65 103/65 07/25/19 20:40 98.2 F 72 24 H 101/59 L 101/59 L 07/25/19 19:40 98.5 F 67 12 111/59 L Pulse Ox 07/26/19 03:10 99 07/26/19 00:40 100 07/26/19 00:33 100 07/26/19 00:18 100 07/26/19 00:15 100 07/25/19 23:45 100 07/25/19 21:05 100 07/25/19 20:40 100 07/25/19 19:40 98 Weight Weight 68.039 kg I&O: 07/24/19 07/25/19 07/26/19 06:59 06:59 06:59 Intake Total 850 Balance 850 Result Diagrams: 07/26/19 04:06 Phys Exam - Physical Examination Constitutional: NAD HEENT: moist MMs, sclera anicteric conjunctiva non-pallor Respiratory: no wheezing, no rhonchi, clear to auscultation bilateral Cardiovascular: RRR, no significant murmur Gastrointestinal: soft, non-tender, positive bowel sounds Musculoskeletal: no edema, pulses present Neurological: non-focal, moves all 4 limbs Psychiatric: normal affect, A&O x 3 Skin: no rash, cap refill <2 seconds Dx/Plan (1) Abnormal uterine bleeding (AUB) Code(s): N93.9 - ABNORMAL UTERINE AND VAGINAL BLEEDING, UNSPECIFIED Status: Acute (2) Uterine fibroid Code(s): D25.9 - LEIOMYOMA OF UTERUS, UNSPECIFIED Status: Acute (3) Symptomatic anemia Code(s): D64.9 - ANEMIA, UNSPECIFIED Status: Acute (4) Alcohol abuse Code(s): F10.10 - ALCOHOL ABUSE, UNCOMPLICATED Status: Chronic (5) GERD (gastroesophageal reflux disease) Code(s): K21.9 - GASTRO-ESOPHAGEAL REFLUX DISEASE WITHOUT ESOPHAGITIS Status: Chronic (6) Tobacco abuse Code(s): Z72.0 - TOBACCO USE Status: Chronic - Plan Plan: # AUB, Symptomatic Anemia Hx started Oct 2018, Nov 2018. Followed by Dr. Mitchell. TVUS revealed multiple fibroids, largest 4 cm. Mirana placed May 2019 with decrease in bleeding until last week. Heavy bleeding q4days, changed pad q1-2h. Dr. Mitchell placed on TXA on 07/21/19. Pt has no bleeding 07/25 but remains symptomatic, Hgb 7.3. 9.2 in March 2019. Vitals stable. - Type and Cross, s/p pRBC's 2 Units - Hgb 9.0 - pending orthostatics, pt will ambulate and monitor for dyspnea - consider iron infusion; pt will continue iron supplements at home. Will add bowel regimen. - OBGYN consult - fatou recs # Microcytic Anemia TIBC 465, Ferritin 8, Iron 20 in 03/2019. Iron transfusion 03/2019. - as above # GERD - controlled # Nicotine Dependence 1pack/4 days - Nicotine patch # Alcohol Abuse Stopped drinking last week. Was drinking a box of wine previously. - no signs, symptoms at this time Diet: no restrictions Fluids: PO intake VTE Prophylaxis: SCDs Code Status: Full Dispo: Obs at this time, see if symptoms resolve with pRBCs, follow up OBGYN recs. Addendum - Attending - Attending Attestation Date/Time: 07/26/19 2729 I personally evaluated the patient and discussed the management with Dr. Saxena I agree with the History, Examination, Assessment and Plan documented above with any addition or exceptions noted below - Patient without complaints. Denies any dizziness. SOB improved. Afebrile VSS. A/P: 1) Anemia secondary to AUB from fibroids- H/H improved as well as symptoms. PLan to d/c home as patient desires conservative therapy for now with continuation of IUD.
--- NOTE | 2019-07-26 08:44 | PRG ---
DATE OF SERVICE: 07/26/2019 HISTORY OF PRESENT ILLNESS: Ms. Villela is a 43-year-old female, admitted by the Family Medicine Service for symptomatic anemia requiring a blood transfusion. The patient's source of blood loss is menorrhagia and had recently placed Mirena IUD and was started on TXA outpatient on 07/21/2019. The patient has since had resolution of her bleeding. This morning, she states her bleeding is still resolved and is otherwise doing fine. Vital signs reviewed and stable ASSESSMENT AND PLAN: The patient is a 43-year-old female with a fibroid uterus and menometrorrhagia, currently with an IUD and TXA for times of heavy bleeding. The patient has required a second blood transfusion in the last several months. I would recommend re-evaluation with an VIDEO PRODUCTION SPECIALIST for surgical management, which may include endometrial biopsy or hysterectomy should significant bleeding persist over the next month or two, putting her at risk for a third blood transfusion. For now, I will be signing off. Anticipate the patient is discharged home today. Job ID: [id number] MTDD
[2019-07-26] MEDS: Sodium Chloride 0.9% 10 ML ONE (08:46)
[2019-07-26 11:53] VITALS: BP 97/52; TEMP 98.5
--- NOTE | 2019-07-26 14:06 | CON ---
DATE OF CONSULTATION: 07/25/2019 CHIEF COMPLAINT: Vaginal bleeding with a fibroid uterus. HISTORY OF PRESENT ILLNESS: The patient is a 43-year-old female, who was admitted on 07/25/2019 for symptomatic anemia by the family medicine team. The patient has had a history of heavy vaginal bleeding and a known fibroid uterus. She was recently seen by Dr. Mitchell in outpatient setting with an IUD placement for control of her menorrhagia. Since that time, the patient reports that she has had more days of bleeding, though is not passing clots anymore and has not had any pain associated with her periods that she had before. Recently given the extent of bleeding that she was having, the patient was also prescribed TXA. The patient at time of my evaluation reports that she is not having any more bleeding. She believes that the IUD has helped some and has not been given sufficient time to see if it is going to be appropriate management long-term. The patient reports a strong desire to keep her uterus and has expressed desire not to interfere with her fertility, though she has no strong feelings about achieving . The patient at this time has no pain and is not bleeding currently. This is the second transfusion in the last several months. The patient has an endometrial biopsy negative of any concerning pathology. PAST MEDICAL HISTORY: Gastroesophageal reflux and fibroid uterus. PAST SURGICAL HISTORY: Negative. SOCIAL HISTORY: Drinks 2 large Smirnoffs a day. PHYSICAL EXAMINATION: VITAL SIGNS: At time of evaluation, blood pressure 109/55, temperature 98.8, pulse is 73, respiratory rate of 20. GENERAL: She appears to be in no acute distress. She is alert, oriented, cooperative, and pleasant to interact with. HEAD: Normocephalic and atraumatic. LABORATORY DATA: Laboratory reported from the clinic as 7.[address] Garcia's office. ASSESSMENT AND PLAN: The patient is a 43-year-old female with a year or two history of abnormal uterine bleeding, had an intrauterine device placed on June 13 of this year and most recently was started on tranexamic acid for her menorrhagia. She is currently not bleeding at this time. The patient is comfortable giving herself more time to see if the intrauterine device and tranexamic acid management plan are going to work for her. She did come in today with symptomatic anemia requiring a blood transfusion. I think it is reasonable giving her another month and see how she bleeds next month as the patient does desire preservation of her fertility. We did discuss that as long as the intrauterine device is in place, chance for getting is extremely low and any hormonal requirements also would likely eliminate or greatly reduce her fertility. The patient is okay with that at this time. We would recommend outpatient followup with an CUPOL[employer] MECHANIC provider to discuss surgical options if this current plan is not sufficiently working. At this time, we appreciate the opportunity to participate in Ms. Villela's care. Job ID: [id number]
--- NOTE | 2019-07-27 12:46 | DIS ---
DATE OF ADMISSION: 07/25/2019 DATE OF DISCHARGE: 07/26/2019 RESIDENT: Camilo Saxena DO ADMITTING/DISCHARGE ATTENDING: Madina Trivedi MD CONSULTS: WELLNESS AMBASSADOR, Lazarus Cabrera MD. PROCEDURES: None. PRIMARY DIAGNOSES: 1. Abnormal uterine bleeding. 2. Symptomatic microcytic anemia. 3. Uterine fibroids. SECONDARY DIAGNOSIS: Gastroesophageal reflux disease. DISCHARGE MEDICATIONS: 1. Ferrous sulfate 325 mg p.o. b.i.d. 2. TXA 650 mg two tablets p.o. t.i.d. p.r.n. for abnormal uterine bleeding. DISCONTINUED MEDICATIONS: None. HISTORY OF PRESENT ILLNESS/HOSPITAL COURSE: The patient is a 43-year-old with past medical history significant for uterine fibroids, abnormal uterine bleeding, who is coming in for symptomatic anemia, directly admitted by Dr. Mitchell. The patient had AUB starting at the end of 2017 resulting in workup revealing uterine fibroids on ultrasound, endometrial biopsy at that time was negative. The patient's symptoms progressed so Mirena was placed in May 2019. Initially, she had decrease in bleeding, but last week, bleeding progressed requiring q.1-2 hours. She states she had orthostatic hypotension, dyspnea on exertion, lightheadedness. At this time, she visited Dr. Mitchell on 07/20, and TXA was started on 07/21 with alleviation of bleeding. Followup phone call by Dr. Mitchell revealed the patient remained symptomatic, so she was admitted, her hemoglobin was 7.4. In the hospital, she was continued on her TXA for the final day on 07/25, which would satisfy 5-day course. She did not have any bleeding while she was in the hospital. She was transfused 2 units of blood and on discharge her hemoglobin was 9.0. She was asymptomatic on discharge. She will follow up with Dr. Mitchell. She will also follow up with [facility] and at that time, she will need repeat iron studies and hemoglobin. As her Mirena has not been in for an extended period of time, we will continue to with Mirena treatment to see if this will decrease her uterine bleeding. If she has worsening symptoms, she was instructed to take the TXA and then follow up for further care. DISPOSITION: Stable. DISCHARGE INSTRUCTIONS: 1. Location: [facility]. 2. Diet: No restrictions. 3. Activity: Ad rosas. 4. Followup: [facility] within [address] Mitchell as needed. Job ID: [id number] MTDD
== END 2019-07-26 13:45 | disposition home or self-care (01) ==
LOC: 3SE 13:10
PROVIDERS: ADMIT Family Medicine; ATTEND Family Medicine
DX: D25.9 Leiomyoma of uterus, unspecified (principal); N93.9 Abnormal uterine and vaginal bleeding, unspecified; D64.9 Anemia, unspecified; K21.9 Gastro-esophageal reflux disease without esophagitis; F17.210 Nicotine dependence, cigarettes, uncomplicated; F10.10 Alcohol abuse, uncomplicated; Z79.899 Other long term (current) drug therapy; Z88.1 Allergy status to other antibiotic agents
CPT/HCPCS: 36415; 36430; 85014; 85018; 86850; 86900; 86901; G0378; P9016

== ENCOUNTER 2020-04-19 09:49 | Emergency (ER) | payer OTHER ==
[2020-04-19 10:32] LABS: #Basophils 0.1 thou/uL (0.0-0.2); #Eosinphils 0.3 thou/uL (0.0-0.7); #Lymphocytes 2.1 thou/uL (1.20-3.40); #Monocytes 1.1 thou/uL (0.11-0.59); #Neutrophils 9.8 thou/uL (1.40-6.50); %Basophils 0.6 % (0.0-1.0); %Eosinophils 2.2 % (0.0-10.0); %Lymphocytes 15.9 % (21.0-51.0); %Monocytes 8.1 % (0.0-10.0); %Neutrophils 73.3 % (42.0-75.0); Hemoglobin 12.6 g/dL (12.0-16.0); Mean Corpuscular HGB CONC 32.7 g/dL (32.0-36.0); Mean Corpuscular Hemoglobin 30.2 pg (27.0-31.0); Mean Corpuscular Volume 92.4 fL (78.0-98.0); Mean Platelet Volume 7.4 fL (7.4-10.4); Platelet Count 381 thou/uL (130-400); RBC Distribution Width 16.6 % (11.5-14.5); Red Blood Cell (RBC) Count 4.18 mill/uL (4.20-5.40); White Blood Cell (WBC) Count 13.3 thou/uL (4.8-10.8)
[2020-04-19] MEDS ORDERED: Ondansetron PF 4 MG/2 ML Vial ONE (10:41)
[2020-04-19] MEDS ORDERED: Acetaminophen 325 MG TAB ONE (10:41)
[2020-04-19] MEDS ORDERED: Mag-Al 1200 mg/1200 mg/30 ML UDCUP ONE (10:42)
[2020-04-19] MEDS ORDERED: Lidocaine Viscous Sol 2% 15 ml UD Cup ONE (10:42)
[2020-04-19 11:04] LABS: ALT (SGPT) 26 U/L (8-55); AST (SGOT) 27 U/L (5-34); Albumin 4.3 g/dL (3.5-5.0); Alkaline Phosphatase 69 U/L (40-110); Anion Gap 12 mmol/L (10-20); BUN (Urea Nitrogen) 8 mg/dL (7.0-18.7); Bilirubin, Total 0.2 mg/dL (0.2-1.2); Calc. Creatinine Clearance 0 mL/min (70-130); Calcium 9.3 mg/dL (7.8-10.44); Carbon Dioxide 28 mmol/L (22-29); Chloride 104 mmol/L (98-107); Estimated GFR-MDRD Greater than 90; Globulin 3.2 g/dL (2.4-3.5); Glucose 92 mg/dL (70-105); Lipase 9 U/L (8-78); Potassium 3.7 mmol/L (3.5-5.1); Protein, Total 7.5 g/dL (6.0-8.3); Sodium 140 mmol/L (136-145)
[2020-04-19 12:12] LABS: Bacteria/HPF None Seen HPF (None Seen); Bilirubin Negative (Negative); Blood, Urine Negative (Negative); Clarity Clear (Clear); Glucose, Urine (Dipstick) Normal (Negative); Leukocyte Negative Leu/uL (Negative); Nitrite Negative (Negative); Protein, Urine (Dipstick) 50 mg/dL (Neg-Trace); RBC/HPF 0-3 HPF (0-3); Squamous Epithelial 0-3 HPF (0-3); Urobilinogen Normal mg/dL (Less than 2); WBC/HPF 0-3 HPF (0-3)
[2020-04-19 12:23] LABS: Pregnancy Test - Urine (BHCG) Negative (Negative)
[2020-04-19 12:24] LABS: Pregu Control Background? CLEAR/WHITE (CLR/WHITE); Pregu Control Bar Appear? YES (CONTROL BAR)
== END 2020-04-19 14:36 | disposition home or self-care (01) ==
LOC: ERS 09:49
DX: K27.9 Peptic ulcer, site unspecified, unspecified as acute or chronic, without hemorrhage or perforation (principal); R11.2 Nausea with vomiting, unspecified; F17.210 Nicotine dependence, cigarettes, uncomplicated
CPT/HCPCS: 80053; 81003; 81015; 81025; 83690; 85025; 96361; 96374; J2405

== ENCOUNTER 2020-05-03 06:41 | Outpatient (CLI) | payer OTHER ==
[2020-05-03 13:23] LABS: BHCG - Serum Negative (NEGATIVE); Pregs Control Background? CLEAR/WHITE (CLR/WHITE); Pregs Control Bar Appear? YES (CONTROL BAR)
[2020-05-03 13:25] LABS: Hemoglobin 13.2 g/dL (12.0-16.0); Mean Corpuscular HGB CONC 33.5 g/dL (32.0-36.0); Mean Corpuscular Hemoglobin 31.3 pg (27.0-31.0); Mean Corpuscular Volume 93.2 fL (78.0-98.0); Platelet Count 476 thou/uL (130-400); RBC Distribution Width 16.1 % (11.5-14.5); Red Blood Cell (RBC) Count 4.22 mill/uL (4.20-5.40); White Blood Cell (WBC) Count 8.1 thou/uL (4.8-10.8)
[2020-05-04 12:17] LABS: SARS-CoV-2 MS2 Positive; SARS-CoV-2 N Gene Negative; SARS-CoV-2 S Gene Negative; SARS-CoV-2 orf1ab Negative
== END 2020-05-03 06:42 | disposition home or self-care (01) ==
LOC: LABBT 06:41
PROVIDERS: ATTEND Obstetrics & Gynecology
DX: Z01.812 Encounter for preprocedural laboratory examination (principal); Z11.59 Encounter for screening for other viral diseases; D25.9 Leiomyoma of uterus, unspecified; D64.9 Anemia, unspecified; R10.2 Pelvic and perineal pain
CPT/HCPCS: 84703; 85027; 87635; U0003

== ENCOUNTER 2020-05-03 10:00 | Inpatient (IN) | payer OTHER ==
[2020-05-02 14:21] VITALS: BMI 26.9
[2020-05-06] MEDS ORDERED: Gabapentin 300 MG CAP ONE (08:38)
[2020-05-06] MEDS ORDERED: Famotidine/PF 20 mg/2ml Vial ONE (08:38)
[2020-05-06] MEDS ORDERED: CeleCOXIB 100 MG CAP ONE (08:38)
[2020-05-06] MEDS ORDERED: Lidocaine 1% w/Epinephrine 1:100K 20 ML VIAL ONE (09:04)
[2020-05-06] MEDS ORDERED: Bupivacaine PF 0.5% 30 ML VIAL ONE (09:04)
[2020-05-06] MEDS ORDERED: Levofloxacin 500 mg/D5W 100 ml Premix Bag ONE (10:22)
[2020-05-06] MEDS ORDERED: Clindamycin/D5W 600 mg/50 ml Premix Bag ONE (10:22)
[2020-05-06] MEDS ORDERED: Clindamycin/D5W 900 mg/50 ml Premix Bag ONE (10:28)
[2020-05-06] MEDS ORDERED: Fentanyl 250 MCG/5 ML VIAL ONE (10:41)
[2020-05-06] MEDS ORDERED: Midazolam HCl 2 mg/2 ml Vial ONE (10:41)
[2020-05-06] MEDS ORDERED: Ropivacaine 0.2% 550 ML 750 ML NERVE BLCK SCH ×2 (11:15→12:45)
[2020-05-06] MEDS ORDERED: PROPOFOL 200 MG/20 ML VIAL ONE (11:30)
[2020-05-06] MEDS ORDERED: Rocuronium Bromide 10 MG/ML (10ML VIAL) ONE (11:30)
[2020-05-06] MEDS ORDERED: PHENYLEPHRINE-NS 100 MCG/ML 10 ML SYRINGE ONE (11:30)
[2020-05-06] MEDS ORDERED: Glycopyrrolate 0.2 MG/ML 5 ML SYRINGE ONE (11:30)
[2020-05-06] MEDS ORDERED: Dexamethasone 20 MG/5 ML VIAL ONE (11:30)
[2020-05-06] MEDS ORDERED: Metoclopramide HCl 10 MG/2 ML VIAL ONE (11:30)
[2020-05-06] MEDS ORDERED: Ondansetron PF 4 MG/2 ML Vial ONE (11:30)
[2020-05-06] MEDS ORDERED: Lidocaine 1% PF 5 ML VIAL ONE (11:30)
[2020-05-06] MEDS ORDERED: Zolpidem Tartrate 5 MG TAB PO PRN (12:28)
[2020-05-06] MEDS ORDERED: diphenhydrAMINE 25 MG CAP PO PRN (12:28)
[2020-05-06] MEDS ORDERED: Bisacodyl 10 MG SUPP PR PRN (12:28)
[2020-05-06] MEDS ORDERED: Simethicone Chewable 80 MG TAB PO PRN (12:28)
[2020-05-06] MEDS ORDERED: HYDROcodone/Acetaminophen 5/325 mg Tablet PO PRN (12:28)
[2020-05-06] MEDS ORDERED: Promethazine HCl 25 MG/ML VIAL IM PRN (12:28)
[2020-05-06] MEDS ORDERED: Morphine 4 MG/ML VIAL SLOW IVP PRN (12:28)
[2020-05-06] MEDS ORDERED: Ondansetron PF 4 MG/2 ML Vial IVP PRN (12:28)
[2020-05-06] MEDS ORDERED: Fentanyl 100 MCG/2 ML VIAL ONE (12:56)
[2020-05-06] MEDS: Sodium Chloride 0.9% 1,000 ML IV SCH ×2 (15:28→20:30)
[2020-05-06] MEDS: Ferrous Sulfate 325 MG TAB PO SCH (16:48)
[2020-05-06] MEDS: Ketorolac Tromethamine 30 MG/ML VIAL IVP SCH (16:48)
[2020-05-06] MEDS: HYDROcodone/Acetaminophen 5/325 mg Tablet PO PRN (20:39)
[2020-05-07] MEDS: Ketorolac Tromethamine 30 MG/ML VIAL IVP SCH (00:38)
[2020-05-07] MEDS: HYDROcodone/Acetaminophen 5/325 mg Tablet PO PRN ×2 (00:42→05:39)
[2020-05-07] MEDS: Sodium Chloride 0.9% 1,000 ML IV SCH (05:43)
[2020-05-07] MEDS: Ferrous Sulfate 325 MG TAB PO SCH (08:13)
[2020-05-07 09:32] VITALS: BP 149/75; TEMP 98.2
--- NOTE | 2020-05-09 09:25 | OP ---
DATE OF PROCEDURE: 05/06/2020 PREOPERATIVE DIAGNOSES: 1. Menorrhagia. 2. Fibroid uterus. POSTOPERATIVE DIAGNOSES: 1. Menorrhagia. 2. Fibroid uterus. PROCEDURES PERFORMED: 1. Robotic-assisted total laparoscopic hysterectomy with bilateral salpingectomy. 2. ON-Q pump placement. INCOME TAX ADMINISTRATOR: Madina Townsend. COMPLICATIONS: None. ESTIMATED BLOOD LOSS: Less than 50 mL. FINDINGS: Enlarged fibroid uterus. Normal intra-abdominal and pelvic anatomy. No adhesive disease. Normal vaginal mucosa and cervix. Surgical sites hemostatic. PROCEDURE IN DETAIL: The patient was taken back to the OR with IV fluids running. Once she was in the OR, she was placed in dorsal supine position. Anesthesia was obtained. The patient was then placed in low dorsal lithotomy position and the abdomen and vagina were prepped and draped in normal fashion for hysterectomy. The surgeon was gowned and gloved. The bladder was drained with a Ellis catheter, placed on a Jyoti syringe tip. An operative speculum was placed into the vagina. The uterus was sounded and a [employer] manipulator was assembled in routine fashion and placed into the uterus and vagina in routine fashion for uterine manipulation. Surgeon's gloves were then changed. Attention was turned to the laparoscopic portion of the case. Beginning above the supraumbilical fold, local anesthesia was placed underneath the skin. A 12-mm skin incision was made and a Veress needle was placed through this incision. The abdomen was insufflated. The Veress needle was removed and a trocar was placed through the distended abdomen. The laparoscope was then placed. The patient was taken placed in Trendelenburg position with the above findings noted. Right and left lower quadrant 8-mm trocars and a right upper quadrant 11-mm trocar were placed in similar fashion and under direct visualization. The robotic arms were docked at the patient's bedside and instruments were entered under laparoscopic view. Beginning on the patient's left side, the left fallopian tube was grasped, elevated, transected and removed from the operative field. The utero-ovarian ligament was cauterized and transected, allowing the left ovary to fall away to the pelvis. The left round ligament was cauterized, transected, and divided into anterior and posterior leafs. The anterior leaf was used to dissect the bladder flap. The vesicouterine fascia was dissected, allowing the bladder fall away from the cervix and planned colpotomy site. The uterine artery was skeletonized, cauterized, and transected with good hemostasis noted. Attention was turned to the contralateral side, where the right fallopian tube was removed in similar fashion. The right utero-ovarian ligament and round ligaments were dissected in similar fashion. The bladder flap was completed from the right side to the left and the bladder was dissected away from the planned colpotomy site. The uterine arteries on the patient's right side were skeletonized, cauterized, and transected with good hemostasis. The colpotomy was then performed circumferentially using monopolar scissors. The uterine specimen was then retracted into the vagina and delivered through the colpotomy. The colpotomy was then copiously irrigated and dried. No areas of bleeding were noted. Any small areas of bleeding that were noted were controlled with Bovie cauterization. The pelvic sidewalls were irrigated with no bleeding noted. The hysterotomy was then closed in a running fashion with Stratafix suture. It was closed in 2 layers. After the colpotomy was closed, it was irrigated and suctioned dry. The pressure was dropped to 4 mmHg with no bleeding noted within the pelvis. An ON-Q catheter tip was then placed under direct visualization and placed into the pelvis. It was primed with local anesthesia. The instruments were then all removed. The count was correct and the gas was released from the abdomen. The supraumbilical incision was closed at the fascial layer. All 4 skin incisions were closed with Monocryl and dressed with Dermabond dressing. The vagina was inspected at the end of the case with hemostasis noted. There were no complications and the counts were correct. Job ID: [id number]
--- NOTE | 2020-05-10 03:47 | DIS ---
DATE OF ADMISSION: 05/06/2020 DATE OF DISCHARGE: 05/07/2020 ADMISSION DIAGNOSIS: Planned hysterectomy. DISCHARGE DIAGNOSIS: Planned hysterectomy. HOSPITAL COURSE: Ms. Radha Villela was admitted for planned robotic-assisted total laparoscopic hysterectomy with bilateral salpingectomy and ON-Q pump placement. She underwent the aforementioned procedure without complications. On postoperative day #1, her postop goals were met. She was ambulating, tolerating regular diet. Her pain was controlled with oral medications and the ON-Q pump. She was discharged home on postop day #1 in good condition with plans to follow up outpatient in my office in 2 weeks and 6 weeks. She was instructed on limited narcotic use and instructions on how to best use her ON-Q pump and NSAIDs for pain control. Job ID: [id number]
== END 2020-05-07 09:15 | disposition home or self-care (01) | DRG 743 ==
LOC: SURG A 05-06 07:56 → EDSTATUS 05-06 10:00 → 3SW 05-06 14:32
PROVIDERS: ADMIT Obstetrics & Gynecology; ATTEND Obstetrics & Gynecology
PROC: 0UT94ZZ Resection of Uterus, Percutaneous Endoscopic Approach (ICD-10-PCS; principal; 2020-05-06)
PROC: 0UB74ZZ Excision of Bilateral Fallopian Tubes, Percutaneous Endoscopic Approach (ICD-10-PCS; 2020-05-06)
PROC: 8E0W0CZ Robotic Assisted Procedure of Trunk Region, Open Approach (ICD-10-PCS; 2020-05-06)
PROC: 0WH Anatomical Regions, General, Insertion (ICD-10-PCS; 2020-05-06)
DX: D25.9 Leiomyoma of uterus, unspecified (principal); D64.9 Anemia, unspecified; N92.0 Excessive and frequent menstruation with regular cycle; N83.8 Other noninflammatory disorders of ovary, fallopian tube and broad ligament; F17.200 Nicotine dependence, unspecified, uncomplicated; Z88.1 Allergy status to other antibiotic agents; Z79.899 Other long term (current) drug therapy
CPT/HCPCS: 36415; 86850; 86900; 86901; 88307; J0690; J1100; J1885; J1956; J2001; J2250; J2405; J2704; J2765; J3010; J3490; S0020; S0028

== ENCOUNTER 2020-09-17 10:15 | Emergency (ER) | payer OTHER, SELFPAY | END 2020-09-17 11:57 | disposition home or self-care (01) | LOC: ERS 10:15 | DX: R49.0 Dysphonia (principal); K21.9 Gastro-esophageal reflux disease without esophagitis; F17.210 Nicotine dependence, cigarettes, uncomplicated; Z79.899 Other long term (current) drug therapy | CPT/HCPCS: 99282 ==

== ENCOUNTER 2021-08-06 12:45 | Emergency (ER) | payer SELFPAY ==
[2021-08-06 13:58] LABS: #Basophils 0.1 thou/uL (0.0-0.2); #Eosinphils 0.3 thou/uL (0.0-0.7); #Lymphocytes 3.5 thou/uL (1.20-3.40); #Monocytes 0.8 thou/uL (0.11-0.59); #Neutrophils 7.1 thou/uL (1.40-6.50); %Basophils 0.8 % (0.0-1.0); %Eosinophils 2.7 % (0.0-10.0); %Lymphocytes 29.6 % (21.0-51.0); %Monocytes 6.8 % (0.0-10.0); %Neutrophils 60.1 % (42.0-75.0); Hemoglobin 13.8 g/dL (12.0-16.0); Mean Corpuscular HGB CONC 34.2 g/dL (32.0-36.0); Mean Corpuscular Hemoglobin 31.3 pg (27.0-31.0); Mean Corpuscular Volume 91.6 fL (78.0-98.0); Mean Platelet Volume 7.3 fL (7.4-10.4); Platelet Count 366 thou/uL (130-400); RBC Distribution Width 11.9 % (11.5-14.5); Red Blood Cell (RBC) Count 4.42 mill/uL (4.20-5.40); White Blood Cell (WBC) Count 11.9 thou/uL (4.8-10.8)
[2021-08-06] MEDS ORDERED: Famotidine 20 MG TAB ONE (14:08)
[2021-08-06] MEDS ORDERED: Mag-Al 1200 mg/1200 mg/30 ML UDCUP ONE (14:09)
[2021-08-06] MEDS ORDERED: Lidocaine Viscous Sol 2% 15 ml UD Cup ONE (14:09)
[2021-08-06 14:25] LABS: ALT (SGPT) 14 U/L (8-55); AST (SGOT) 14 U/L (5-34); Albumin 4.3 g/dL (3.5-5.0); Alkaline Phosphatase 65 U/L (40-110); Anion Gap 13 mmol/L (10-20); BUN (Urea Nitrogen) 9 mg/dL (7.0-18.7); Bilirubin, Total 0.3 mg/dL (0.2-1.2); Calc. Creatinine Clearance 0 mL/min (70-130); Calcium 9.6 mg/dL (7.8-10.44); Carbon Dioxide 26 mmol/L (22-29); Chloride 104 mmol/L (98-107); Globulin 2.8 g/dL (2.4-3.5); Glucose 65 mg/dL (70-105); Potassium 4.2 mmol/L (3.5-5.1); Protein, Total 7.1 g/dL (6.0-8.3); Sodium 139 mmol/L (136-145)
[2021-08-06 15:07] LABS: Bilirubin Negative (Negative); Blood, Urine Trace (Negative); Glucose, Urine (Dipstick) Negative (Negative); Ketone, Urine Negative (Negative); Leukocyte Negative (Negative); Nitrite Negative (Negative); Protein, Urine (Dipstick) Negative (Neg-Trace); Urobilinogen 0.2 mg/dL (Less than 2); pH, Urine 7.5 (5.0-9.0)
[2021-08-06 15:23] LABS: Clarity Clear (Clear)
== END 2021-08-06 15:37 | disposition home or self-care (01) ==
LOC: ERS 12:45
DX: R10.13 Epigastric pain (principal); R04.2 Hemoptysis; R11.2 Nausea with vomiting, unspecified; F17.210 Nicotine dependence, cigarettes, uncomplicated
CPT/HCPCS: 36415; 80053; 81003; 83690; 85025; 99284

== ENCOUNTER 2021-10-06 06:47 | Emergency (ER) | payer BC, SELFPAY ==
[2021-10-06] MEDS ORDERED: Ketorolac Tromethamine 30 MG/ML VIAL ONE (07:10)
[2021-10-06] MEDS ORDERED: Acetaminophen 500 MG TAB ONE (07:10)
== END 2021-10-06 07:59 | disposition home or self-care (01) ==
LOC: ERS 06:47
DX: S46.812A Strain of other muscles, fascia and tendons at shoulder and upper arm level, left arm, initial encounter (principal); F17.210 Nicotine dependence, cigarettes, uncomplicated; X50.9XXA Other and unspecified overexertion or strenuous movements or postures, initial encounter
CPT/HCPCS: 93005; 96372; J1885

== ENCOUNTER 2021-10-21 06:27 | Emergency (ER) | payer BC ==
[2021-10-21] MEDS ORDERED: Methocarbamol 1 GM/10 ML VIAL IM SCH (07:15)
[2021-10-21] MEDS ORDERED: Acetaminophen 500 MG TAB ONE (07:39)
== END 2021-10-21 08:39 | disposition home or self-care (01) ==
LOC: ERS 06:27
DX: I11.0 Hypertensive heart disease with heart failure (principal); I50.9 Heart failure, unspecified; R79.89 Other specified abnormal findings of blood chemistry; Z86.73 Personal history of transient ischemic attack (TIA), and cerebral infarction without residual deficits
CPT/HCPCS: 96372; 99283; J2800

== ENCOUNTER 2021-11-21 09:46 | Emergency (ER) | payer BC ==
[2021-11-21 10:48] LABS: Anion Gap 10 mmol/L (10-20); BUN (Urea Nitrogen) 8 mg/dL (7.0-18.7); Calc. Creatinine Clearance 0 mL/min (70-130); Calcium 9.6 mg/dL (7.8-10.44); Carbon Dioxide 24 mmol/L (22-29); Chloride 107 mmol/L (98-107); Glucose 100 mg/dL (70-105); Potassium 4.1 mmol/L (3.5-5.1); Sodium 137 mmol/L (136-145)
[2021-11-21 11:01] LABS: #Eosinphils 0.4 thou/uL (0.0-0.7); #Lymphocytes 2.5 thou/uL (1.20-3.40); #Monocytes 0.6 thou/uL (0.11-0.59); #Neutrophils 6.1 thou/uL (1.40-6.50); %Basophils 0.4 % (0.0-1.0); %Eosinophils 4.4 % (0.0-10.0); %Lymphocytes 25.4 % (21.0-51.0); %Monocytes 6.4 % (0.0-10.0); %Neutrophils 63.4 % (42.0-75.0); Hemoglobin 13.9 g/dL (12.0-16.0); Mean Corpuscular HGB CONC 34.1 g/dL (32.0-36.0); Mean Corpuscular Volume 90.9 fL (78.0-98.0); Mean Platelet Volume 7.4 fL (7.4-10.4); Platelet Count 325 thou/uL (130-400); RBC Distribution Width 12.7 % (11.5-14.5); Red Blood Cell (RBC) Count 4.48 mill/uL (4.20-5.40); White Blood Cell (WBC) Count 9.7 thou/uL (4.8-10.8)
[2021-11-21] MEDS ORDERED: Cyclobenzaprine 10 MG TAB ONE (11:39)
== END 2021-11-21 11:40 | disposition home or self-care (01) ==
LOC: ERS 09:46
DX: R07.9 Chest pain, unspecified (principal); R20.2 Paresthesia of skin; F17.210 Nicotine dependence, cigarettes, uncomplicated
CPT/HCPCS: 36415; 71045; 80048; 84484; 85025; 85379; 93005

== ENCOUNTER 2022-05-21 13:03 | Outpatient (CLI) | payer MEDICAID | END 2022-05-21 13:04 | disposition home or self-care (01) | LOC: BICMAMMO 13:03 | PROVIDERS: ATTEND Nurse Practitioner Family | DX: N64.4 Mastodynia (principal) | CPT/HCPCS: 77066; G0279 ==

== ENCOUNTER 2023-01-13 04:37 | Emergency (ER) | payer MEDICAID ==
[2023-01-13 05:33] LABS: #Basophils 0.1 thou/uL (0.0-0.2); #Eosinphils 0.3 thou/uL (0.0-0.7); #Lymphocytes 1.9 thou/uL (1.20-3.40); #Monocytes 0.9 thou/uL (0.11-0.59); #Neutrophils 11.2 thou/uL (1.40-6.50); %Basophils 0.4 % (0.0-1.0); %Eosinophils 2.3 % (0.0-10.0); %Lymphocytes 13.1 % (21.0-51.0); %Monocytes 6.4 % (0.0-10.0); %Neutrophils 77.8 % (42.0-75.0); Hemoglobin 12.4 g/dL (12.0-16.0); Mean Corpuscular HGB CONC 33.9 g/dL (32.0-36.0); Mean Corpuscular Volume 94.5 fl (78.0-98.0); Mean Platelet Volume 7.3 fL (7.4-10.4); Platelet Count 300 10x3/uL (130-400); RBC Distribution Width 12.1 % (11.5-14.5); Red Blood Cell (RBC) Count 3.88 mill/uL (4.20-5.40); White Blood Cell (WBC) Count 14.5 10x3/uL (4.8-10.8)
[2023-01-13 05:54] LABS: ALT (SGPT) 15 U/L (8-55); AST (SGOT) 13 U/L (5-34); Albumin 3.9 g/dL (3.5-5.0); Alkaline Phosphatase 54 U/L (40-110); Anion Gap 8 mmol/L (10-20); BUN (Urea Nitrogen) Less than 4 mg/dL (7.0-18.7); Bilirubin, Total 0.4 mg/dL (0.2-1.2); Calc. Creatinine Clearance 0 mL/min (70-130); Calcium 9.1 mg/dL (7.8-10.44); Carbon Dioxide 29 mmol/L (22-29); Chloride 104 mmol/L (98-107); Estimated GFR 113; Globulin 2.3 g/dL (2.4-3.5); Glucose 97 mg/dL (70-105); Lipase 10 U/L (8-78); Potassium 3.9 mmol/L (3.5-5.1); Protein, Total 6.2 g/dL (6.0-8.3); Sodium 137 mmol/L (136-145)
[2023-01-13] MEDS ORDERED: Lidocaine Viscous Sol 2% 15 ml UD Cup ONE (06:02)
[2023-01-13] MEDS ORDERED: Mag-Al 1200 mg/1200 mg/30 ML UDCUP ONE (06:02)
[2023-01-13 06:15] LABS: Bacteria/HPF None Seen HPF (None Seen); Bilirubin Negative (Negative); Blood, Urine Trace (Negative); Clarity Clear (Clear); Glucose, Urine (Dipstick) Normal (Negative); Ketone, Urine Negative (Negative); Leukocyte Negative Leu/uL (Negative); Mucous/LPF Rare LPF (<2+); Nitrite Negative (Negative); Protein, Urine (Dipstick) Negative (Neg-Trace); RBC/HPF 0-3 HPF (0-3); Specific Gravity, Urine 1.008 (1.002-1.036); Squamous Epithelial 0-3 HPF (0-3); Urobilinogen Normal mg/dL (Less than 2); WBC/HPF 0-3 HPF (0-3); pH, Urine 8.5 (5.0-9.0)
== END 2023-01-13 06:51 | disposition home or self-care (01) ==
LOC: ERS 04:37
DX: R10.819 Abdominal tenderness, unspecified site (principal); D72.829 Elevated white blood cell count, unspecified; F17.210 Nicotine dependence, cigarettes, uncomplicated
CPT/HCPCS: 36415; 80053; 81003; 81015; 83690; 85025; 87086; 99284

== ENCOUNTER 2023-07-01 04:58 | Emergency (ER) | payer MEDICAID, SELFPAY ==
[2023-07-01 06:20] LABS: Bacteria/HPF None Seen HPF (None Seen); Bilirubin Negative (Negative); Blood, Urine 2+ (Negative); CAUTI Indications for Culture Pelvic or flank pain; Clarity Clear (Clear); Glucose, Urine (Dipstick) Normal (Negative); Ketone, Urine Trace mg/dL (Negative); Leukocyte Negative Leu/uL (Negative); Nitrite Negative (Negative); Protein, Urine (Dipstick) 10 mg/dL (Neg-Trace); Specific Gravity, Urine 1.018 (1.002-1.036); Squamous Epithelial 0-3 HPF (0-3); Urobilinogen Normal mg/dL (Less than 2); WBC/HPF 0-3 HPF (0-3)
[2023-07-01 06:23] LABS: Urine Culture Reflex No No
[2023-07-01] MEDS ORDERED: traMADol HCl 50 MG TAB ONE (06:49)
[2023-07-01] MEDS ORDERED: Ketorolac Tromethamine 30 MG/ML VIAL ONE (07:21)
== END 2023-07-01 07:29 | disposition home or self-care (01) ==
LOC: ERS 04:58
DX: R10.30 Lower abdominal pain, unspecified (principal); F17.210 Nicotine dependence, cigarettes, uncomplicated
CPT/HCPCS: 81001; 96372; 99284; J1885

== ENCOUNTER 2023-07-28 06:27 | Emergency (ER) | payer BC, MEDICAID ==
[2023-07-28] MEDS ORDERED: Ibuprofen 200 MG TAB ONE (06:46)
[2023-07-28] MEDS ORDERED: Diazepam 5 MG TAB ONE (06:57)
== END 2023-07-28 07:32 | disposition home or self-care (01) ==
LOC: ERS 06:27
DX: S46.012A Strain of muscle(s) and tendon(s) of the rotator cuff of left shoulder, initial encounter (principal); F17.210 Nicotine dependence, cigarettes, uncomplicated; X50.0XXA Overexertion from strenuous movement or load, initial encounter

== ENCOUNTER 2023-08-09 08:00 | Emergency (ER) | payer BC | END 2023-08-09 08:46 | disposition home or self-care (01) | LOC: ERS 08:00 | DX: G89.29 Other chronic pain (principal); M54.2 Cervicalgia; F17.210 Nicotine dependence, cigarettes, uncomplicated | CPT/HCPCS: 99283 ==

== ENCOUNTER 2023-08-30 11:46 | Emergency (ER) | payer BC ==
[2023-08-30] MEDS ORDERED: Ketorolac Tromethamine 30 MG/ML VIAL ONE (13:20)
== END 2023-08-30 13:37 | disposition home or self-care (01) ==
LOC: ERS 11:46
DX: M79.602 Pain in left arm (principal); F17.210 Nicotine dependence, cigarettes, uncomplicated
CPT/HCPCS: 96372; 99283; J1885

== ENCOUNTER 2023-09-20 09:40 | Emergency (ER) | payer BC | END 2023-09-20 09:56 | disposition home or self-care (01) | LOC: ERS 09:40 | DX: R19.7 Diarrhea, unspecified (principal); F17.210 Nicotine dependence, cigarettes, uncomplicated | CPT/HCPCS: 99283 ==

== ENCOUNTER 2023-10-12 08:27 | Emergency (ER) | payer BC ==
[2023-10-12] MEDS ORDERED: Ketorolac Tromethamine 30 MG/ML VIAL ONE (09:14)
[2023-10-12] MEDS ORDERED: Lidocaine 2% Viscous Solution 10 ML, Aluminum & Magnesium Hydroxide 30 ML SSW SCH (09:15)
[2023-10-12 09:19] LABS: #Basophils 0.1 thou/uL (0.0-0.2); #Eosinphils 0.4 thou/uL (0.0-0.7); #Monocytes 0.8 thou/uL (0.11-0.59); #Neutrophils 5.4 thou/uL (1.40-6.50); %Basophils 0.5 % (0.0-1.0); %Lymphocytes 29.2 % (21.0-51.0); %Monocytes 8.6 % (0.0-10.0); %Neutrophils 57.5 % (42.0-75.0); Hematocrit 39.3 % (36.0-47.0); Hemoglobin 13.4 g/dL (12.0-16.0); Mean Corpuscular HGB CONC 34.1 g/dL (32.0-36.0); Mean Corpuscular Hemoglobin 31.2 pg (27.0-31.0); Mean Corpuscular Volume 91.6 fl (78.0-98.0); Mean Platelet Volume 9.3 fL (7.4-10.4); Platelet Count 310 10x3/uL (130-400); RBC Distribution Width 14.3 % (11.5-14.5); Red Blood Cell (RBC) Count 4.29 mill/uL (4.20-5.40); White Blood Cell (WBC) Count 9.4 10x3/uL (4.8-10.8)
[2023-10-12 09:41] LABS: ALT (SGPT) 18 U/L (8-55); AST (SGOT) 27 U/L (5-34); Albumin 4.1 g/dL (3.5-5.0); Alkaline Phosphatase 44 U/L (40-110); Anion Gap 12 mmol/L (10-20); BUN (Urea Nitrogen) 4 mg/dL (7.0-18.7); Bilirubin, Total 0.8 mg/dL (0.2-1.2); CK (CPK) 63 U/L (29-168); Calc. Creatinine Clearance 0 mL/min (70-130); Carbon Dioxide 25 mmol/L (22-29); Chloride 105 mmol/L (98-107); Estimated GFR 111; Globulin 2.5 g/dL (2.4-3.5); Glucose 85 mg/dL (70-105); Potassium 3.7 mmol/L (3.5-5.1); Protein, Total 6.6 g/dL (6.0-8.3); Sodium 138 mmol/L (136-145)
[2023-10-12 10:54] LABS: Bacteria/HPF None Seen HPF (None Seen); Bilirubin Negative (Negative); Blood, Urine Negative (Negative); CAUTI Indications for Culture Fever or rigors; Clarity Clear (Clear); Glucose, Urine (Dipstick) Normal (Negative); Ketone, Urine Negative (Negative); Leukocyte Negative Leu/uL (Negative); Nitrite Negative (Negative); Protein, Urine (Dipstick) Negative (Neg-Trace); RBC/HPF 0-3 HPF (0-3); Specific Gravity, Urine 1.015 (1.002-1.036); Squamous Epithelial 0-3 HPF (0-3); Urobilinogen Normal mg/dL (Less than 2); WBC/HPF 0-3 HPF (0-3)
[2023-10-12 10:58] LABS: Urine Culture Reflex No No
== END 2023-10-12 11:12 | disposition home or self-care (01) ==
LOC: ERS 08:27
DX: K52.9 Noninfective gastroenteritis and colitis, unspecified (principal); F17.210 Nicotine dependence, cigarettes, uncomplicated
CPT/HCPCS: 36415; 80053; 81001; 82550; 85025; 96361; 96374; J1885

== ENCOUNTER 2024-08-09 07:18 | Emergency (ER) | payer OTHER ==
[2024-08-09] MEDS ORDERED: Ketorolac Tromethamine 30 MG (1 mL) VIAL ONE (08:00)
[2024-08-09] MEDS ORDERED: Ondansetron PF 4 MG/2 ML Vial ONE (08:00)
[2024-08-09] MEDS ORDERED: Aspirin Chewable 81 MG TAB ONE (08:09)
[2024-08-09 08:17] LABS: #Basophils 0.04 10x3/uL (0.0-0.2); %Basophils 0.7 % (0.0-1.0); %Eosinophils 2.2 % (0.0-10.0); %Lymphocytes 38.5 % (21.0-51.0); %Monocytes 7.7 % (0.0-10.0); %Neutrophils 50.7 % (42.0-75.0); Hematocrit 41.8 % (36.0-47.0); Hemoglobin 14.3 g/dL (12.0-16.0); Mean Corpuscular HGB CONC 34.2 g/dL (32.0-36.0); Mean Corpuscular Hemoglobin 30.4 pg (27.0-31.0); Mean Corpuscular Volume 88.7 fL (78.0-98.0); Mean Platelet Volume 9.4 fL (7.4-10.4); Platelet Count 346 10x3/uL (130-400); RBC Distribution Width 13.2 % (11.5-14.5); Red Blood Cell (RBC) Count 4.71 mill/uL (4.20-5.40)
[2024-08-09 08:38] LABS: ALT (SGPT) 25 U/L (8-55); AST (SGOT) 27 U/L (5-34); Albumin 3.7 g/dL (3.5-5.0); Alkaline Phosphatase 56 U/L (40-110); Anion Gap 12 mmol/L (10-20); BUN (Urea Nitrogen) Less than 4 mg/dL (7.0-18.7); Bilirubin, Total 0.2 mg/dL (0.2-1.2); Calc. Creatinine Clearance 0 mL/min (70-130); Calcium 9.1 mg/dL (7.8-10.44); Carbon Dioxide 23 mmol/L (22-29); Chloride 107 mmol/L (98-107); Estimated GFR 109; Globulin 3.1 g/dL (2.4-3.5); Glucose 88 mg/dL (70-105); Lipase 18 U/L (8-78); Magnesium 1.8 mg/dL (1.6-2.6); Potassium 3.4 mmol/L (3.5-5.1); Protein, Total 6.8 g/dL (6.0-8.3); Sodium 139 mmol/L (136-145)
[2024-08-09 08:56] LABS: Influenza A by NAA Not Detected (NotDetected); Influenza B by NAA Not Detected (NotDetected); SARS-CoV-2 NAA Rapid Test DETECTED (NotDetected)
[2024-08-09 08:59] LABS: Troponin I Less than 0.010 ng/mL (< 0.028)
[2024-08-09 09:13] LABS: Bacteria/HPF None Seen HPF (None Seen); Bilirubin Negative (Negative); Blood, Urine Negative (Negative); CAUTI Indications for Culture Dysuria,urgency,freq; Clarity Clear (Clear); Glucose, Urine (Dipstick) Normal (Negative); Ketone, Urine Negative (Negative); Leukocyte Negative Leu/uL (Negative); Nitrite Negative (Negative); Protein, Urine (Dipstick) Negative (Neg-Trace); RBC/HPF 0-3 HPF (0-3); Squamous Epithelial 0-3 HPF (0-3); Urobilinogen Normal mg/dL (Less than 2); WBC/HPF 0-3 HPF (0-3); pH, Urine 6.5 (5.0-9.0)
[2024-08-09 09:22] LABS: Urine Culture Reflex No No
== END 2024-08-09 10:15 | disposition home or self-care (01) ==
LOC: ERS 07:18
DX: U07.1 COVID-19 (principal); R07.9 Chest pain, unspecified; F17.210 Nicotine dependence, cigarettes, uncomplicated
CPT/HCPCS: 36415; 71045; 80053; 81001; 83690; 83735; 83880; 84484; 85025; 93005; 96361; 96374; 96375; J1885; J2405

== ENCOUNTER 2024-10-20 05:38 | Emergency (ER) | payer OTHER ==
[2024-10-20 06:17] LABS: #Basophils 0.07 10x3/uL (0.0-0.2); %Basophils 0.7 % (0.0-1.0); %Eosinophils 4.3 % (0.0-10.0); %Lymphocytes 27.6 % (21.0-51.0); %Monocytes 5.9 % (0.0-10.0); %Neutrophils 61.3 % (42.0-75.0); Hematocrit 37.7 % (36.0-47.0); Hemoglobin 13.3 g/dL (12.0-16.0); Mean Corpuscular HGB CONC 35.3 g/dL (32.0-36.0); Mean Corpuscular Hemoglobin 31.2 pg (27.0-31.0); Mean Corpuscular Volume 88.5 fL (78.0-98.0); Mean Platelet Volume 9.4 fL (7.4-10.4); Platelet Count 333 10x3/uL (130-400); RBC Distribution Width 13.7 % (11.5-14.5); Red Blood Cell (RBC) Count 4.26 mill/uL (4.20-5.40)
[2024-10-20] MEDS ORDERED: Aspirin 325 MG TAB ONE (06:25)
[2024-10-20 06:59] LABS: Troponin I Less than 0.010 ng/mL (< 0.028)
[2024-10-20 07:04] LABS: ALT (SGPT) 17 U/L (8-55); AST (SGOT) 15 U/L (5-34); Albumin 3.8 g/dL (3.5-5.0); Alkaline Phosphatase 44 U/L (40-110); Anion Gap 14 mmol/L (10-20); BUN (Urea Nitrogen) 5 mg/dL (7.0-18.7); Bilirubin, Total 0.3 mg/dL (0.2-1.2); Calc. Creatinine Clearance 0 mL/min (70-130); Calcium 8.7 mg/dL (7.8-10.44); Carbon Dioxide 21 mmol/L (22-29); Chloride 108 mmol/L (98-107); Estimated GFR 104; Globulin 2.8 g/dL (2.4-3.5); Glucose 89 mg/dL (70-105); Potassium 3.6 mmol/L (3.5-5.1); Protein, Total 6.6 g/dL (6.0-8.3); Sodium 139 mmol/L (136-145)
[2024-10-20] MEDS ORDERED: Ketorolac Tromethamine 30 MG (1 mL) VIAL ONE (07:18)
== END 2024-10-20 08:15 | disposition home or self-care (01) ==
LOC: ERS 05:38
DX: R07.89 Other chest pain (principal); F17.210 Nicotine dependence, cigarettes, uncomplicated
CPT/HCPCS: 36415; 71045; 80053; 83880; 84484; 85025; 93005; 96374; J1885

== ENCOUNTER 2025-08-28 09:29 | Emergency (ER) | payer OTHER ==
[2025-08-28 10:14] LABS: Bacteria/HPF None Seen HPF (None Seen); CAUTI Indications for Culture Pelvic or flank pain; Glucose, Urine (Dipstick) Normal (Negative); Leukocyte Negative Leu/uL (Negative); Protein, Urine (Dipstick) Negative (Neg-Trace); RBC/HPF 0-3 HPF (0-3); Specific Gravity, Urine 1.007 (1.002-1.036); WBC/HPF 0-3 HPF (0-3)
[2025-08-28] MEDS ORDERED: Iopamidol 370 76% 100 ML VIAL ONE (10:19)
[2025-08-28 10:21] LABS: Urine Culture Reflex No No
[2025-08-28 10:37] LABS: #Basophils 0.05 10x3/uL (0.0-0.2); #Eosinophils 0.33 10x3/uL (0.0-0.7); #Monocytes 0.59 10x3/uL (0.11-0.59); #Neutrophils 5.79 10x3/uL (1.40-6.50); %Basophils 0.5 % (0.0-1.0); %Eosinophils 3.5 % (0.0-10.0); %Lymphocytes 27.9 % (21.0-51.0); %Monocytes 6.3 % (0.0-10.0); %Neutrophils 61.6 % (42.0-75.0); Hematocrit 39.7 % (36.0-47.0); Hemoglobin 13.6 g/dL (12.0-16.0); Mean Corpuscular Hemoglobin 31.1 pg (27.0-31.0); Mean Corpuscular Volume 90.8 fL (78.0-98.0); Platelet Count 321 10x3/uL (130-400); Red Blood Cell (RBC) Count 4.37 mill/uL (4.20-5.40); White Blood Cell (WBC) Count 9.41 10x3/uL (4.8-10.8)
[2025-08-28 11:06] LABS: BHCG - Serum Negative (NEGATIVE); Pregs Control Background? CLEAR/WHITE (CLR/WHITE); Pregs Control Bar Appear? YES (CONTROL BAR)
[2025-08-28 11:09] LABS: ALT (SGPT) 46 U/L (Less than 34); AST (SGOT) 61 U/L (11-34); Albumin 3.9 g/dL (3.1-4.5); Alkaline Phosphatase 61 U/L (40-110); Anion Gap 15 mmol/L (10-20); BUN (Urea Nitrogen) 8 mg/dL (7.0-18.7); Bilirubin, Total 0.2 mg/dL (0.3-1.2); Calc. Creatinine Clearance 0 mL/min (70-130); Calcium 8.6 mg/dL (7.8-10.44); Carbon Dioxide 19 mmol/L (22-29); Chloride 107 mmol/L (98-107); Globulin 3.0 g/dL (2.4-3.5); Glucose 89 mg/dL (70-105); Lipase 20 U/L (8-78); Potassium 3.9 mmol/L (3.5-5.1); Sodium 137 mmol/L (136-145)
== END 2025-08-28 13:05 | disposition home or self-care (01) ==
LOC: ERS 09:29
DX: K92.1 Melena (principal); F17.210 Nicotine dependence, cigarettes, uncomplicated
CPT/HCPCS: 74177; 80053; 81001; 82274; 83690; 84703; 85025

== ENCOUNTER 2025-11-19 17:54 | Emergency (ER) | payer OTHER ==
[2025-11-19] MEDS ORDERED: Dexamethasone 10 MG/ML VIAL ONE (18:50)
[2025-11-19 19:05] LABS: #Basophils 0.04 10x3/uL (0.0-0.2); #Eosinophils 0.35 10x3/uL (0.0-0.7); #Monocytes 0.65 10x3/uL (0.11-0.59); #Neutrophils 4.41 10x3/uL (1.40-6.50); %Basophils 0.4 % (0.0-1.0); %Eosinophils 3.7 % (0.0-10.0); %Lymphocytes 42.1 % (21.0-51.0); %Monocytes 6.9 % (0.0-10.0); %Neutrophils 46.7 % (42.0-75.0); Hematocrit 36.8 % (36.0-47.0); Hemoglobin 12.5 g/dL (12.0-16.0); Mean Corpuscular Hemoglobin 31.4 pg (27.0-31.0); Mean Corpuscular Volume 92.5 fL (78.0-98.0); Platelet Count 345 10x3/uL (130-400); Red Blood Cell (RBC) Count 3.98 mill/uL (4.20-5.40); White Blood Cell (WBC) Count 9.44 10x3/uL (4.8-10.8)
[2025-11-19 19:22] LABS: ALT (SGPT) 26 U/L (Less than 34); AST (SGOT) 38 U/L (11-34); Albumin 3.7 g/dL (3.1-4.5); Alkaline Phosphatase 70 U/L (40-110); Anion Gap 12 mmol/L (10-20); BUN (Urea Nitrogen) 4 mg/dL (7.0-18.7); Bilirubin, Total 0.2 mg/dL (0.3-1.2); Calc. Creatinine Clearance 0 mL/min (70-130); Calcium 9.2 mg/dL (7.8-10.44); Carbon Dioxide 23 mmol/L (22-29); Chloride 105 mmol/L (98-107); Globulin 3.2 g/dL (2.4-3.5); Glucose 100 mg/dL (70-105); Potassium 3.5 mmol/L (3.5-5.1); Sodium 136 mmol/L (136-145)
== END 2025-11-19 20:22 | disposition left against medical advice (07) ==
LOC: ERS 17:54
DX: J02.9 Acute pharyngitis, unspecified (principal); R05.9 Cough, unspecified; F17.210 Nicotine dependence, cigarettes, uncomplicated
CPT/HCPCS: 36415; 80053; 85025; 96374; J1100